=== PATIENT | female | born 1955 | race Caucasian/White ===

== ENCOUNTER 2022-02-01 18:16 | Emergency (ER) | payer MEDICARE, MEDICAID ==
[~2022-02-01 18:16] MED LIST: Iopamidol 300 61% 100 ML VIAL FS ONE
[2022-02-01 18:54] LABS: Bilirubin Neg (Negative); Blood, Urine Negative (Negative); Clarity Clear (Clear); Glucose, Urine (Dipstick) Normal (Negative); Ketone, Urine Negative (Negative); Leukocyte 100 (Negative); Nitrite Negative (Negative); Protein, Urine (Dipstick) Negative (Neg-Trace); Urobilinogen Normal mg/dL (Less than 2)
[2022-02-01 18:59] LABS: #Eosinphils 0.4 10x3/uL (0.0-0.5); #Monocytes 0.9 10x3/uL (0.0-1.1); #Neutrophils 4.5 10x3/uL (1.5-8.4); %Basophils 0.5 % (0.0-2.0); %Eosinophils 5.1 % (0.0-6.0); %Lymphocytes 25.4 % (18.0-47.0); %Monocytes 11.4 % (0.0-10.0); %Neutrophils 57.2 % (40.0-75.0); Hemoglobin 10.8 g/dL (12.0-15.5); Mean Corpuscular HGB CONC 33.8 g/dL (32.0-36.0); Mean Corpuscular Hemoglobin 30.1 pg (27.0-33.0); Mean Corpuscular Volume 89.1 fl (81.6-98.3); Mean Platelet Volume 11.2 fl (7.4-10.4); Platelet Count 180 10x3/uL (150-450); RBC Distribution Width 15.5 % (11.5-14.5); Red Blood Cell (RBC) Count 3.59 10x6/uL (3.90-5.03); White Blood Cell (WBC) Count 7.8 10x3/uL (3.5-10.5)
[2022-02-01 19:07] LABS: Bacteria/HPF None Seen HPF (None Seen); RBC/HPF 0-3 HPF (0-3); Squamous Epithelial 0-3 HPF (0-3); WBC/HPF 0-3 HPF (0-3)
[2022-02-01 19:10] LABS: ALT (SGPT) 17 U/L (8-55); AST (SGOT) 16 U/L (5-34); Alkaline Phosphatase 79 U/L (40-110); Anion Gap 16 mmol/L (10-20); BUN (Urea Nitrogen) 37 mg/dL (9.8-20.1); Bilirubin, Total 0.5 mg/dL (0.2-1.2); Calc. Creatinine Clearance 0 mL/min (70-130); Calcium 9.4 mg/dL (7.8-10.44); Carbon Dioxide 29 mmol/L (23-31); Chloride 95 mmol/L (98-107); Glucose 201 mg/dL (80-115); Lipase 362 U/L (8-78); Potassium 3.6 mmol/L (3.5-5.1); Sodium 136 mmol/L (136-145)
[2022-02-01 21:53] LABS: Lactic Acid 1.4 mmol/L (0.5-2.2)
== END 2022-02-02 00:17 | disposition short-term general hospital (02) ==
LOC: CSHERS 18:16
DX: K85.90 Acute pancreatitis without necrosis or infection, unspecified (principal); I11.0 Hypertensive heart disease with heart failure; I50.9 Heart failure, unspecified; I48.91 Unspecified atrial fibrillation; J44.9 Chronic obstructive pulmonary disease, unspecified; E78.5 Hyperlipidemia, unspecified; E03.9 Hypothyroidism, unspecified; K21.9 Gastro-esophageal reflux disease without esophagitis; Z79.4 Long term (current) use of insulin; Z87.891 Personal history of nicotine dependence; Z79.01 Long term (current) use of anticoagulants; Z79.899 Other long term (current) drug therapy
CPT/HCPCS: 36415; 71045; 74177; 80053; 81003; 81015; 82274; 83605; 83690; 83880; 84484; 85025; 87040; 87086; 93005; Q9967

== ENCOUNTER 2022-03-02 18:25 | Inpatient (IN) | payer MEDICARE, MEDICAID ==
[2022-03-02 19:32] LABS: #Basophils 0.1 10x3/uL (0.0-0.2); #Eosinphils 0.4 10x3/uL (0.0-0.5); #Monocytes 1.3 10x3/uL (0.0-1.1); %Basophils 0.4 % (0.0-2.0); %Eosinophils 3.1 % (0.0-6.0); %Lymphocytes 16.8 % (18.0-47.0); %Monocytes 10.7 % (0.0-10.0); %Neutrophils 68.7 % (40.0-75.0); Mean Corpuscular HGB CONC 31.9 g/dL (32.0-36.0); Mean Corpuscular Hemoglobin 28.9 pg (27.0-33.0); Mean Corpuscular Volume 90.6 fl (81.6-98.3); Mean Platelet Volume 11.3 fl (7.4-10.4); Platelet Count 203 10x3/uL (150-450); RBC Distribution Width 15.2 % (11.5-14.5); Red Blood Cell (RBC) Count 3.81 10x6/uL (3.90-5.03); White Blood Cell (WBC) Count 11.7 10x3/uL (3.5-10.5)
[2022-03-02 19:47] LABS: ALT (SGPT) 20 U/L (8-55); AST (SGOT) 18 U/L (5-34); Albumin 3.9 g/dL (3.4-4.8); Alkaline Phosphatase 81 U/L (40-110); Anion Gap 15 mmol/L (10-20); BUN (Urea Nitrogen) 59 mg/dL (9.8-20.1); Bilirubin, Total 0.5 mg/dL (0.2-1.2); Calc. Creatinine Clearance 0 mL/min (70-130); Calcium 9.8 mg/dL (7.8-10.44); Carbon Dioxide 31 mmol/L (23-31); Chloride 100 mmol/L (98-107); Globulin 4.1 g/dL (2.4-3.5); Glucose 92 mg/dL (80-115); Potassium 4.3 mmol/L (3.5-5.1); Sodium 142 mmol/L (136-145)
[2022-03-02] MEDS ORDERED: Calcium Carbonate 500 MG ChewTAB PO PRN (21:15)
[2022-03-02] MEDS ORDERED: Dextrose 50% Abboject 50 ML SYRINGE SLOW IVP PRN (21:15)
[2022-03-02] MEDS ORDERED: Ondansetron PF 4 MG/2 ML Vial IVP PRN (21:15)
[2022-03-02] MEDS ORDERED: Dextrose 5% in Water 1,000 ML IV PRN (21:15)
[2022-03-02] MEDS ORDERED: Guaifenesin DM 100-10/5 ML UDCUP PO PRN (21:15)
[2022-03-02] MEDS ORDERED: Albuterol Sulfate 2.5 mg/3 ml Neb NEB PRN (21:26)
[2022-03-02] MEDS ORDERED: Sodium Chloride 0.9% 500 ML IV SCH (21:45)
[2022-03-02] MEDS ORDERED: Acetaminophen 325 MG TAB ONE (22:24)
[2022-03-02 22:30] LABS: Digoxin 1.68 ng/mL (0.8-2.0)
[2022-03-02 23:40] VITALS: BMI 27.6
[2022-03-03 01:58] LABS: SARS-CoV-2 NAA Rapid Test Not Detected (NotDetected)
[2022-03-03] MEDS: Levothyroxine Sodium 100 MCG TAB PO SCH (05:01)
[2022-03-03 05:25] LABS: #Basophils 0.1 10x3/uL (0.0-0.2); #Eosinphils 0.4 10x3/uL (0.0-0.5); #Monocytes 0.9 10x3/uL (0.0-1.1); #Neutrophils 5.6 10x3/uL (1.5-8.4); %Basophils 0.7 % (0.0-2.0); %Eosinophils 4.2 % (0.0-6.0); %Monocytes 9.6 % (0.0-10.0); %Neutrophils 63.3 % (40.0-75.0); Hemoglobin 11.2 g/dL (12.0-15.5); Mean Corpuscular HGB CONC 33.3 g/dL (32.0-36.0); Mean Corpuscular Hemoglobin 29.4 pg (27.0-33.0); Mean Corpuscular Volume 88.2 fl (81.6-98.3); Mean Platelet Volume 11.8 fl (7.4-10.4); Platelet Count 193 10x3/uL (150-450); RBC Distribution Width 15.2 % (11.5-14.5); Red Blood Cell (RBC) Count 3.81 10x6/uL (3.90-5.03); White Blood Cell (WBC) Count 8.9 10x3/uL (3.5-10.5)
[2022-03-03 05:45] LABS: Anion Gap 17 mmol/L (10-20); Carbon Dioxide 28 mmol/L (23-31); Chloride 102 mmol/L (98-107); Potassium 3.5 mmol/L (3.5-5.1); Sodium 143 mmol/L (136-145)
[2022-03-03 05:46] LABS: ALT (SGPT) 18 U/L (8-55); AST (SGOT) 17 U/L (5-34); Albumin 3.4 g/dL (3.4-4.8); Alkaline Phosphatase 73 U/L (40-110); BUN (Urea Nitrogen) 51 mg/dL (9.8-20.1); Bilirubin, Total 0.5 mg/dL (0.2-1.2); Calc. Creatinine Clearance 58 mL/min (70-130); Calcium 9.1 mg/dL (7.8-10.44); Globulin 3.5 g/dL (2.4-3.5); Glucose 73 mg/dL (80-115); Protein, Total 6.9 g/dL (5.8-8.1)
[2022-03-03 05:49] LABS: Bilirubin Neg (Negative); Blood, Urine 150 (Negative); Clarity Cloudy (Clear); Glucose, Urine (Dipstick) Normal (Negative); Ketone, Urine Negative (Negative); Leukocyte 500 (Negative); Nitrite Negative (Negative); Protein, Urine (Dipstick) 30 mg/dl (Neg-Trace); Urobilinogen Normal mg/dL (Less than 2)
[2022-03-03 06:02] LABS: Bacteria/HPF 3+ HPF (None Seen); WBC/HPF Greater than 50 HPF (0-3)
[2022-03-03] MEDS: Mometasone/Formoterol 60 PUFF AER INH SCH ×2 (06:54→19:25)
[2022-03-03] MEDS ORDERED: Famotidine 20 MG TAB PO SCH (09:00)
[2022-03-03] MEDS ORDERED: cefTRIAXone\\ROCEPHIN 1 GM in Sodium Chloride 0.9% 100 ML IVPB SCH (09:00)
[2022-03-03 09:39] LABS: Troponin I 0.026 ng/mL (< 0.028)
[2022-03-03] MEDS: Aspirin 81 mg Enteric Coated Tablet PO SCH (11:45)
[2022-03-03] MEDS: Saccharomyces boulardii 250 MG CAP PO SCH ×2 (11:45→21:10)
[2022-03-03] MEDS: Cholecalciferol 1,000 UNITS (25 MCG) TAB PO SCH (11:45)
[2022-03-03] MEDS: Apixaban 5 MG TAB PO SCH ×2 (11:45→21:10)
[2022-03-03] MEDS: Allopurinol 100 MG TAB PO SCH (11:45)
[2022-03-03] MEDS: Multivit, Therapeutic 1 TAB PO SCH (11:45)
[2022-03-03] MEDS: Digoxin 0.125 MG TAB PO SCH (11:45)
[2022-03-03] MEDS: Atorvastatin Calcium 20 MG TAB PO SCH (11:45)
[2022-03-03] MEDS: Acetaminophen 325 MG TAB PO PRN (11:46)
[2022-03-03] MEDS: Sodium Chloride 0.9% 1,000 ML IV SCH (11:47)
[2022-03-03] MEDS: cefTRIAXone\\ROCEPHIN 1 GM in Sodium Chloride 0.9% 100 ML IVPB SCH (11:47)
[2022-03-03] MEDS: Benztropine 1 MG TAB PO SCH (21:10)
[2022-03-04] MEDS: Sodium Chloride 0.9% 1,000 ML IV SCH (05:57)
[2022-03-04] MEDS: Levothyroxine Sodium 100 MCG TAB PO SCH (05:57)
[2022-03-04] MEDS: Mometasone/Formoterol 60 PUFF AER INH SCH ×2 (06:59→19:39)
[2022-03-04] MEDS: Aspirin 81 mg Enteric Coated Tablet PO SCH (09:03)
[2022-03-04] MEDS: Multivit, Therapeutic 1 TAB PO SCH (09:03)
[2022-03-04] MEDS: Apixaban 5 MG TAB PO SCH ×2 (09:03→21:20)
[2022-03-04] MEDS: Allopurinol 100 MG TAB PO SCH (09:03)
[2022-03-04] MEDS: Cholecalciferol 1,000 UNITS (25 MCG) TAB PO SCH (09:04)
[2022-03-04] MEDS: Atorvastatin Calcium 20 MG TAB PO SCH (09:04)
[2022-03-04] MEDS: Saccharomyces boulardii 250 MG CAP PO SCH ×2 (09:04→21:20)
[2022-03-04] MEDS: Famotidine 20 MG TAB PO SCH ×2 (09:04→21:20)
[2022-03-04] MEDS: Digoxin 0.125 MG TAB PO SCH (09:57)
[2022-03-04] MEDS: cefTRIAXone\\ROCEPHIN 1 GM in Sodium Chloride 0.9% 100 ML IVPB SCH (10:09)
[2022-03-04] MEDS: Acetaminophen 325 MG TAB PO PRN (10:11)
[2022-03-04 13:15] LABS: #Basophils 0.1 10x3/uL (0.0-0.2); #Eosinphils 0.2 10x3/uL (0.0-0.5); #Monocytes 0.7 10x3/uL (0.0-1.1); #Neutrophils 6.8 10x3/uL (1.5-8.4); %Basophils 0.6 % (0.0-2.0); %Eosinophils 2.5 % (0.0-6.0); %Lymphocytes 13.6 % (18.0-47.0); %Monocytes 7.7 % (0.0-10.0); %Neutrophils 75.3 % (40.0-75.0); Hemoglobin 10.9 g/dL (12.0-15.5); Mean Corpuscular HGB CONC 34.1 g/dL (32.0-36.0); Mean Corpuscular Hemoglobin 29.7 pg (27.0-33.0); Mean Corpuscular Volume 87.2 fl (81.6-98.3); Mean Platelet Volume 11.1 fl (7.4-10.4); Platelet Count 170 10x3/uL (150-450); RBC Distribution Width 15.2 % (11.5-14.5); Red Blood Cell (RBC) Count 3.67 10x6/uL (3.90-5.03)
[2022-03-04 13:32] LABS: Anion Gap 16 mmol/L (10-20); BUN (Urea Nitrogen) 32 mg/dL (9.8-20.1); Calc. Creatinine Clearance 81 mL/min (70-130); Calcium 9.4 mg/dL (7.8-10.44); Carbon Dioxide 25 mmol/L (23-31); Chloride 99 mmol/L (98-107); Glucose 213 mg/dL (80-115); Potassium 3.9 mmol/L (3.5-5.1); Sodium 136 mmol/L (136-145)
[2022-03-04] MEDS: Benztropine 1 MG TAB PO SCH (21:20)
[2022-03-04] MEDS: HumaLOG 300 UNITS/3 ML VIAL SC PRN (21:22)
[2022-03-05] MEDS: Sodium Chloride 0.9% 1,000 ML IV SCH (03:10)
[2022-03-05 05:00] LABS: #Eosinphils 0.3 10x3/uL (0.0-0.5); #Monocytes 0.4 10x3/uL (0.0-1.1); #Neutrophils 4.8 10x3/uL (1.5-8.4); %Basophils 0.4 % (0.0-2.0); %Eosinophils 3.7 % (0.0-6.0); %Lymphocytes 17.6 % (18.0-47.0); %Monocytes 6.3 % (0.0-10.0); %Neutrophils 71.7 % (40.0-75.0); Hemoglobin 10.6 g/dL (12.0-15.5); Mean Corpuscular HGB CONC 33.2 g/dL (32.0-36.0); Mean Corpuscular Hemoglobin 29.4 pg (27.0-33.0); Mean Corpuscular Volume 88.4 fl (81.6-98.3); Mean Platelet Volume 12.2 fl (7.4-10.4); Platelet Count 185 10x3/uL (150-450); RBC Distribution Width 15.5 % (11.5-14.5); Red Blood Cell (RBC) Count 3.61 10x6/uL (3.90-5.03); White Blood Cell (WBC) Count 6.7 10x3/uL (3.5-10.5)
[2022-03-05 05:17] LABS: Anion Gap 17 mmol/L (10-20); BUN (Urea Nitrogen) 26 mg/dL (9.8-20.1); Calc. Creatinine Clearance 71 mL/min (70-130); Calcium 9.3 mg/dL (7.8-10.44); Carbon Dioxide 25 mmol/L (23-31); Chloride 101 mmol/L (98-107); Glucose 304 mg/dL (80-115); Sodium 139 mmol/L (136-145)
[2022-03-05] MEDS: Levothyroxine Sodium 100 MCG TAB PO SCH (05:44)
[2022-03-05] MEDS: HumaLOG 300 UNITS/3 ML VIAL SC PRN ×3 (06:11→16:45)
[2022-03-05] MEDS: Mometasone/Formoterol 60 PUFF AER INH SCH ×2 (06:27→19:30)
[2022-03-05] MEDS: Famotidine 20 MG TAB PO SCH ×3 (09:16→21:11)
[2022-03-05] MEDS: Atorvastatin Calcium 20 MG TAB PO SCH (09:16)
[2022-03-05] MEDS: Cholecalciferol 1,000 UNITS (25 MCG) TAB PO SCH (09:16)
[2022-03-05] MEDS: Allopurinol 100 MG TAB PO SCH (09:16)
[2022-03-05] MEDS: cefTRIAXone\\ROCEPHIN 1 GM in Sodium Chloride 0.9% 100 ML IVPB SCH (09:16)
[2022-03-05] MEDS: Saccharomyces boulardii 250 MG CAP PO SCH ×2 (09:17→21:11)
[2022-03-05] MEDS: Multivit, Therapeutic 1 TAB PO SCH (09:17)
[2022-03-05] MEDS: Apixaban 5 MG TAB PO SCH ×2 (09:17→21:11)
[2022-03-05] MEDS: Aspirin 81 mg Enteric Coated Tablet PO SCH (09:17)
[2022-03-05] MEDS: Benztropine 1 MG TAB PO SCH (21:11)
[2022-03-05] MEDS: Acetaminophen 325 MG TAB PO PRN (21:28)
[2022-03-06] MEDS: HumaLOG 300 UNITS/3 ML VIAL SC PRN ×3 (00:26→12:20)
[2022-03-06] MEDS: Levothyroxine Sodium 100 MCG TAB PO SCH (05:24)
[2022-03-06 05:26] LABS: #Eosinphils 0.3 10x3/uL (0.0-0.5); #Monocytes 0.7 10x3/uL (0.0-1.1); #Neutrophils 4.3 10x3/uL (1.5-8.4); %Basophils 0.6 % (0.0-2.0); %Eosinophils 4.8 % (0.0-6.0); %Lymphocytes 22.7 % (18.0-47.0); %Neutrophils 61.5 % (40.0-75.0); Hemoglobin 10.4 g/dL (12.0-15.5); Mean Corpuscular HGB CONC 33.2 g/dL (32.0-36.0); Mean Corpuscular Hemoglobin 29.3 pg (27.0-33.0); Mean Corpuscular Volume 88.2 fl (81.6-98.3); Mean Platelet Volume 11.2 fl (7.4-10.4); Platelet Count 167 10x3/uL (150-450); RBC Distribution Width 15.3 % (11.5-14.5); Red Blood Cell (RBC) Count 3.55 10x6/uL (3.90-5.03); White Blood Cell (WBC) Count 6.9 10x3/uL (3.5-10.5)
[2022-03-06 05:28] LABS: Anion Gap 15 mmol/L (10-20); BUN (Urea Nitrogen) 17 mg/dL (9.8-20.1); Calc. Creatinine Clearance 88 mL/min (70-130); Calcium 9.7 mg/dL (7.8-10.44); Carbon Dioxide 26 mmol/L (23-31); Chloride 104 mmol/L (98-107); Glucose 158 mg/dL (80-115); Sodium 141 mmol/L (136-145)
[2022-03-06] MEDS: Mometasone/Formoterol 60 PUFF AER INH SCH (07:14)
[2022-03-06] MEDS: cefTRIAXone\\ROCEPHIN 1 GM in Sodium Chloride 0.9% 100 ML IVPB SCH (09:07)
[2022-03-06] MEDS: Saccharomyces boulardii 250 MG CAP PO SCH (09:08)
[2022-03-06] MEDS: Acetaminophen 325 MG TAB PO PRN (09:08)
[2022-03-06] MEDS: Atorvastatin Calcium 20 MG TAB PO SCH (09:08)
[2022-03-06] MEDS: Cholecalciferol 1,000 UNITS (25 MCG) TAB PO SCH (09:08)
[2022-03-06] MEDS: Multivit, Therapeutic 1 TAB PO SCH (09:08)
[2022-03-06] MEDS: Famotidine 20 MG TAB PO SCH (09:08)
[2022-03-06] MEDS: Aspirin 81 mg Enteric Coated Tablet PO SCH (09:09)
[2022-03-06] MEDS: Apixaban 5 MG TAB PO SCH (09:09)
[2022-03-06] MEDS: Allopurinol 100 MG TAB PO SCH (09:09)
[2022-03-06 17:43] VITALS: BP 125/73; TEMP 98.5
[2022-03-06] MEDS ORDERED: Lantus 1000 UNITS/10 ML VIAL SC SCH (21:00)
== END 2022-03-06 18:06 | DRG 683 ==
LOC: CSHERS 18:25 → CSHTELE 23:36
PROVIDERS: ADMIT Student in an Organized Health Care Education/Training Program; ATTEND Internal Medicine
DX: N17.9 Acute kidney failure, unspecified (principal); I50.42 Chronic combined systolic (congestive) and diastolic (congestive) heart failure; I13.0 Hypertensive heart and chronic kidney disease with heart failure and stage 1 through stage 4 chronic kidney disease, or unspecified chronic kidney disease; N39.0 Urinary tract infection, site not specified; I42.9 Cardiomyopathy, unspecified; I48.19 Other persistent atrial fibrillation; E78.5 Hyperlipidemia, unspecified; E86.0 Dehydration; E03.9 Hypothyroidism, unspecified; K21.9 Gastro-esophageal reflux disease without esophagitis; J44.9 Chronic obstructive pulmonary disease, unspecified; F31.9 Bipolar disorder, unspecified; R41.841 Cognitive communication deficit; F20.9 Schizophrenia, unspecified; T14.8XXA Other injury of unspecified body region, initial encounter; M10.9 Gout, unspecified; I34.0 Nonrheumatic mitral (valve) insufficiency; I25.10 Atherosclerotic heart disease of native coronary artery without angina pectoris; E11.22 Type 2 diabetes mellitus with diabetic chronic kidney disease; D72.829 Elevated white blood cell count, unspecified; R00.1 Bradycardia, unspecified; I87.2 Venous insufficiency (chronic) (peripheral); R62.7 Adult failure to thrive; E11.51 Type 2 diabetes mellitus with diabetic peripheral angiopathy without gangrene; I35.0 Nonrheumatic aortic (valve) stenosis; N18.30 Chronic kidney disease, stage 3 unspecified; R19.7 Diarrhea, unspecified; K59.00 Constipation, unspecified; Z20.822 Contact with and (suspected) exposure to COVID-19; Z87.891 Personal history of nicotine dependence; Z79.84 Long term (current) use of oral hypoglycemic drugs; Z79.01 Long term (current) use of anticoagulants; Z98.890 Other specified postprocedural states; Z87.440 Personal history of urinary (tract) infections; Z68.27 Body mass index [BMI] 27.0-27.9, adult; Z99.3 Dependence on wheelchair; Z79.899 Other long term (current) drug therapy; Z79.890 Hormone replacement therapy; Z79.4 Long term (current) use of insulin; Z79.82 Long term (current) use of aspirin
CPT/HCPCS: 36415; 36416; 71045; 74176; 80048; 80053; 80162; 81001; 82550; 83605; 83690; 83880; 84145; 84443; 84484; 85025; 87040; 87070; 87077; 87086; 87186; 87205; 93005; 93010; J0696; J1815; J3490; J7050

== ENCOUNTER 2022-03-20 07:49 | Inpatient (IN) | payer MEDICARE, MEDICAID ==
[2022-03-20] MEDS ORDERED: Furosemide 40 MG/4 ML VIAL ONE (08:16)
[2022-03-20] MEDS ORDERED: Diltiazem 125 MG/25 ML ONE (08:16)
[2022-03-20 08:29] LABS: #Eosinphils 0.2 10x3/uL (0.0-0.5); #Monocytes 0.6 10x3/uL (0.0-1.1); #Neutrophils 5.8 10x3/uL (1.5-8.4); %Basophils 0.5 % (0.0-2.0); %Lymphocytes 20.6 % (18.0-47.0); %Monocytes 7.2 % (0.0-10.0); %Neutrophils 69.5 % (40.0-75.0); Hemoglobin 10.4 g/dL (12.0-15.5); Mean Corpuscular HGB CONC 32.4 g/dL (32.0-36.0); Mean Corpuscular Hemoglobin 29.3 pg (27.0-33.0); Mean Corpuscular Volume 90.4 fl (81.6-98.3); Platelet Count 209 10x3/uL (150-450); RBC Distribution Width 16.4 % (11.5-14.5); Red Blood Cell (RBC) Count 3.55 10x6/uL (3.90-5.03); White Blood Cell (WBC) Count 8.3 10x3/uL (3.5-10.5)
[2022-03-20 08:42] LABS: ALT (SGPT) 14 U/L (8-55); AST (SGOT) 13 U/L (5-34); Albumin 3.9 g/dL (3.4-4.8); Alkaline Phosphatase 77 U/L (40-110); Anion Gap 17 mmol/L (10-20); BUN (Urea Nitrogen) 25 mg/dL (9.8-20.1); Calc. Creatinine Clearance 0 mL/min (70-130); Calcium 9.3 mg/dL (7.8-10.44); Carbon Dioxide 31 mmol/L (23-31); Chloride 96 mmol/L (98-107); Globulin 3.7 g/dL (2.4-3.5); Glucose 176 mg/dL (80-115); Potassium 3.2 mmol/L (3.5-5.1); Protein, Total 7.6 g/dL (5.8-8.1); Sodium 141 mmol/L (136-145)
[2022-03-20] MEDS ORDERED: Potassium Chloride 20 MEQ TAB ONE (09:39)
[2022-03-20] MEDS ORDERED: Morphine 4 MG/ML VIAL ONE (11:34)
[2022-03-20] MEDS ORDERED: Ondansetron PF 4 MG/2 ML Vial ONE (11:34)
[2022-03-20 12:10] LABS: Troponin I 0.018 ng/mL (< 0.028)
[2022-03-20 15:03] LABS: Troponin I 0.016 ng/mL (< 0.028)
[2022-03-20] MEDS ORDERED: Magnesium 2 GM/50 ML(in water) 2 GM in Premix Bag 1 BAG IVPB SCH (16:00)
[2022-03-20] MEDS ORDERED: Diltiazem 125 MG in Sodium Chloride 0.9% 100 ML IVPB SCH (16:15)
[2022-03-20] MEDS ORDERED: Famotidine/PF 20 mg/2ml Vial SLOW IVP SCH (21:00)
[2022-03-20] MEDS: Apixaban 5 MG TAB PO SCH (22:25)
[2022-03-21 05:31] LABS: #Eosinphils 0.2 10x3/uL (0.0-0.5); #Monocytes 0.5 10x3/uL (0.0-1.1); #Neutrophils 5.8 10x3/uL (1.5-8.4); %Basophils 0.3 % (0.0-2.0); %Eosinophils 3.1 % (0.0-6.0); %Lymphocytes 12.8 % (18.0-47.0); %Monocytes 6.6 % (0.0-10.0); %Neutrophils 76.9 % (40.0-75.0); Hemoglobin 9.7 g/dL (12.0-15.5); Mean Corpuscular HGB CONC 32.3 g/dL (32.0-36.0); Mean Corpuscular Hemoglobin 29.4 pg (27.0-33.0); Mean Corpuscular Volume 90.9 fl (81.6-98.3); Mean Platelet Volume 11.2 fl (7.4-10.4); Platelet Count 160 10x3/uL (150-450); RBC Distribution Width 16.4 % (11.5-14.5); White Blood Cell (WBC) Count 7.5 10x3/uL (3.5-10.5)
[2022-03-21 06:06] LABS: Anion Gap 16 mmol/L (10-20); BUN (Urea Nitrogen) 23 mg/dL (9.8-20.1); Calc. Creatinine Clearance 90 mL/min (70-130); Calcium 8.7 mg/dL (7.8-10.44); Carbon Dioxide 31 mmol/L (23-31); Chloride 96 mmol/L (98-107); Estimated GFR 59; Glucose 204 mg/dL (80-115); Potassium 3.3 mmol/L (3.5-5.1); Sodium 140 mmol/L (136-145)
[2022-03-21] MEDS: Acetaminophen 325 MG TAB PO PRN ×2 (06:22→10:21)
[2022-03-21] MEDS ORDERED: Potassium Chloride 20 MEQ TAB PO SCH (08:00)
[2022-03-21] MEDS ORDERED: Dextrose 5% in Water 1,000 ML IV PRN (09:41)
[2022-03-21] MEDS ORDERED: Dextrose 50% Abboject 50 ML SYRINGE SLOW IVP PRN (09:41)
[2022-03-21] MEDS: Famotidine 20 MG TAB PO SCH ×2 (10:22→21:44)
[2022-03-21] MEDS: Apixaban 5 MG TAB PO SCH ×2 (10:22→21:44)
[2022-03-21 10:35] LABS: Magnesium 2.2 mg/dL (1.6-2.6)
[2022-03-21] MEDS ORDERED: Metoprolol Tartrate 25 MG TAB PO SCH ×2 (11:00→23:45)
[2022-03-21] MEDS ORDERED: HYDROcodone/Acetaminophen 5/325 mg Tablet PO PRN (12:49)
[2022-03-21] MEDS: Furosemide 40 MG TAB PO SCH (13:01)
[2022-03-21] MEDS: CEFAZOLIN 2 GM in Sodium Chloride 0.9% 100 ML IVPB SCH ×2 (13:01→21:47)
[2022-03-21] MEDS ORDERED: Bisacodyl 10 MG SUPP PR PRN (17:08)
[2022-03-21] MEDS: HumaLOG 300 UNITS/3 ML VIAL SC PRN ×2 (17:40→22:00)
[2022-03-21] MEDS ORDERED: Polyethylene Glycol 3350 17 GM Packet PO SCH (18:00)
[2022-03-21] MEDS ORDERED: Bisacodyl 5 MG TAB PO SCH (18:00)
[2022-03-21 18:46] LABS: Bilirubin Neg (Negative); Blood, Urine 10 (Negative); Clarity Clear (Clear); Glucose, Urine (Dipstick) Normal (Negative); Ketone, Urine Negative (Negative); Leukocyte Negative (Negative); Nitrite Negative (Negative); Protein, Urine (Dipstick) Negative (Neg-Trace); Specific Gravity, Urine 1.015 (1.002-1.036)
[2022-03-21 18:57] LABS: Urine Culture Reflex No No
[2022-03-21 18:59] LABS: Bacteria/HPF 1+ HPF (None Seen); RBC/HPF 0-3 HPF (0-3); Squamous Epithelial 0-3 HPF (0-3); WBC/HPF 0-3 HPF (0-3)
[2022-03-21] MEDS: Mometasone/Formoterol 60 PUFF AER INH SCH (20:25)
[2022-03-21] MEDS: Lantus 1000 UNITS/10 ML VIAL SC SCH (21:42)
[2022-03-21] MEDS: traMADol HCl 50 MG TAB PO PRN (21:44)
[2022-03-21] MEDS: Senokot S 8.6-50 MG TAB PO SCH (21:45)
[2022-03-21] MEDS: Benztropine 1 MG TAB PO SCH (21:45)
[2022-03-21] MEDS: Metoprolol Tartrate 25 MG TAB PO SCH (21:46)
[2022-03-21] MEDS: Melatonin 3 MG TAB PO SCH (21:46)
[2022-03-21] MEDS: Aripiprazole 10 MG TAB PO SCH (22:01)
[2022-03-22] MEDS: CEFAZOLIN 2 GM in Sodium Chloride 0.9% 100 ML IVPB SCH ×2 (03:06→11:52)
[2022-03-22 05:07] LABS: #Eosinphils 0.1 10x3/uL (0.0-0.5); #Monocytes 0.6 10x3/uL (0.0-1.1); #Neutrophils 7.5 10x3/uL (1.5-8.4); %Basophils 0.2 % (0.0-2.0); %Eosinophils 0.6 % (0.0-6.0); %Monocytes 6.3 % (0.0-10.0); %Neutrophils 83.5 % (40.0-75.0); Mean Corpuscular HGB CONC 31.5 g/dL (32.0-36.0); Mean Corpuscular Hemoglobin 29.1 pg (27.0-33.0); Mean Corpuscular Volume 92.2 fl (81.6-98.3); Mean Platelet Volume 11.5 fl (7.4-10.4); Platelet Count 170 10x3/uL (150-450); Red Blood Cell (RBC) Count 3.44 10x6/uL (3.90-5.03)
[2022-03-22 05:33] LABS: ALT (SGPT) 12 U/L (8-55); AST (SGOT) 13 U/L (5-34); Albumin 3.4 g/dL (3.4-4.8); Alkaline Phosphatase 76 U/L (40-110); Anion Gap 16 mmol/L (10-20); BUN (Urea Nitrogen) 27 mg/dL (9.8-20.1); Bilirubin, Direct 0.3 mg/dL (0.1-0.3); Bilirubin, Total 0.5 mg/dL (0.2-1.2); CRP (Inflammatory) 14.29 mg/dL (= or < 0.5); Calc. Creatinine Clearance 76 mL/min (70-130); Calcium 8.9 mg/dL (7.8-10.44); Carbon Dioxide 29 mmol/L (23-31); Cardiac Risk 4.2 (Less than 4.5); Chloride 97 mmol/L (98-107); Cholesterol 123 mg/dl (< 200 Desired); Estimated GFR 48; Glucose 280 mg/dL (80-115); HDL Cholesterol 29 mg/dL (>60 Neg Risk); LDL Cholesterol, Calculated 75 mg/dL; Potassium 3.3 mmol/L (3.5-5.1); Protein, Total 6.8 g/dL (5.8-8.1); Sodium 139 mmol/L (136-145); Triglycerides 95 mg/dL (Less than 150)
[2022-03-22] MEDS: HumaLOG 300 UNITS/3 ML VIAL SC PRN ×3 (06:27→18:00)
[2022-03-22] MEDS: Levothyroxine Sodium 75 MCG TAB PO SCH (06:27)
[2022-03-22] MEDS: Mometasone/Formoterol 60 PUFF AER INH SCH ×2 (06:49→21:45)
[2022-03-22] MEDS ORDERED: Potassium Bicarbonate/Cit Ac 20 MEQ TAB PO SCH (08:00)
[2022-03-22] MEDS ORDERED: Polyethylene Glycol 3350 17 GM Packet PO SCH (09:00)
[2022-03-22] MEDS: Apixaban 5 MG TAB PO SCH ×2 (09:08→21:10)
[2022-03-22] MEDS: Famotidine 20 MG TAB PO SCH ×2 (09:08→21:10)
[2022-03-22] MEDS: Metoprolol Tartrate 25 MG TAB PO SCH ×2 (09:08→21:11)
[2022-03-22] MEDS: Furosemide 40 MG TAB PO SCH (09:08)
[2022-03-22] MEDS: Atorvastatin Calcium 20 MG TAB PO SCH (09:09)
[2022-03-22] MEDS: Aspirin 81 mg Enteric Coated Tablet PO SCH (09:09)
[2022-03-22] MEDS: Senokot S 8.6-50 MG TAB PO SCH ×2 (09:13→22:40)
[2022-03-22] MEDS ORDERED: Metoprolol Tartrate 5 MG/5 ML VIAL IVP PRN (09:53)
[2022-03-22] MEDS ORDERED: Milk Of Magnesia 30 ML UDCUP PO SCH (10:30)
[2022-03-22] MEDS ORDERED: Metoprolol Tartrate 25 MG TAB PO SCH (11:00)
[2022-03-22] MEDS ORDERED: Fleet Enema 133 ML BOT PR PRN (12:46)
[2022-03-22] MEDS: Furosemide 40 MG/4 ML VIAL SLOW IVP SCH (14:23)
[2022-03-22] MEDS ORDERED: Furosemide 40 MG/4 ML VIAL SLOW IVP SCH (20:00)
[2022-03-22] MEDS ORDERED: Azithromycin 500 MG in Sodium Chloride 0.9% 250 ML 250 ML IVPB SCH (20:00)
[2022-03-22 20:07] LABS: Actual Bicarbonate (HCO3v) 30 mEq/L (22-28); Base Excess 5.3 mEq/L (-2.0 to +3.0); Calcium, Ionized (venous) 1.08 mmol/L (1.16-1.32); Chloride (VBG) 96 mmol/L (98-106); Critical Notified By: CP.PH; Hemoglobin (Hb) 10.1 g/dL (11.7-16.1); Potassium (VBG) 3.25 mmol/L (3.70-5.30); Puncture Site Other Site; Sodium 133.6 mmol/L (133-146); pH (venous) 7.45 (7.32-7.43)
[2022-03-22] MEDS ORDERED: cefTRIAXone\\ROCEPHIN 2 GM in Sodium Chloride 0.9% 100 ML IVPB SCH (21:00)
[2022-03-22] MEDS: Melatonin 3 MG TAB PO SCH (21:11)
[2022-03-22] MEDS: Polyethylene Glycol 3350 17 GM Packet PO SCH (21:11)
[2022-03-22] MEDS: Benztropine 1 MG TAB PO SCH (21:11)
[2022-03-22 21:13] LABS: Lactic Acid 1.1 mmol/L (0.5-2.2)
[2022-03-22] MEDS: Aripiprazole 10 MG TAB PO SCH (21:20)
[2022-03-22] MEDS: Lantus 1000 UNITS/10 ML VIAL SC SCH (21:32)
[2022-03-22] MEDS ORDERED: Potassium Chloride 20 MEQ TAB PO SCH (23:45)
[2022-03-23 04:57] LABS: Anion Gap 15 mmol/L (10-20); BUN (Urea Nitrogen) 25 mg/dL (9.8-20.1); Calc. Creatinine Clearance 84 mL/min (70-130); Calcium 8.7 mg/dL (7.8-10.44); Carbon Dioxide 31 mmol/L (23-31); Chloride 96 mmol/L (98-107); Estimated GFR 55; Glucose 220 mg/dL (80-115); Magnesium 1.9 mg/dL (1.6-2.6); Potassium 3.8 mmol/L (3.5-5.1); Sodium 138 mmol/L (136-145)
[2022-03-23] MEDS: Levothyroxine Sodium 75 MCG TAB PO SCH (05:41)
[2022-03-23] MEDS: Furosemide 40 MG/4 ML VIAL SLOW IVP SCH ×2 (05:41→18:03)
[2022-03-23] MEDS: HumaLOG 300 UNITS/3 ML VIAL SC PRN ×2 (05:45→16:00)
[2022-03-23 06:41] LABS: #Eosinphils 0.1 10x3/uL (0.0-0.5); #Monocytes 0.7 10x3/uL (0.0-1.1); #Neutrophils 8.8 10x3/uL (1.5-8.4); %Basophils 0.4 % (0.0-2.0); %Eosinophils 0.6 % (0.0-6.0); %Monocytes 6.8 % (0.0-10.0); %Neutrophils 81.6 % (40.0-75.0); Hemoglobin 9.7 g/dL (12.0-15.5); Mean Corpuscular HGB CONC 32.1 g/dL (32.0-36.0); Mean Corpuscular Volume 90.4 fl (81.6-98.3); Mean Platelet Volume 11.8 fl (7.4-10.4); Platelet Count 166 10x3/uL (150-450); Red Blood Cell (RBC) Count 3.34 10x6/uL (3.90-5.03); White Blood Cell (WBC) Count 10.8 10x3/uL (3.5-10.5)
[2022-03-23] MEDS: Mometasone/Formoterol 60 PUFF AER INH SCH ×2 (07:16→18:50)
[2022-03-23] MEDS: Famotidine 20 MG TAB PO SCH ×2 (10:33→21:45)
[2022-03-23] MEDS: Atorvastatin Calcium 20 MG TAB PO SCH (10:33)
[2022-03-23] MEDS: Polyethylene Glycol 3350 17 GM Packet PO SCH (10:33)
[2022-03-23] MEDS: Apixaban 5 MG TAB PO SCH ×2 (10:34→21:45)
[2022-03-23] MEDS: Metoprolol Tartrate 25 MG TAB PO SCH ×2 (10:34→21:45)
[2022-03-23] MEDS: Aspirin 81 mg Enteric Coated Tablet PO SCH (10:39)
[2022-03-23] MEDS: Senokot S 8.6-50 MG TAB PO SCH ×2 (10:39→21:45)
[2022-03-23] MEDS: traMADol HCl 50 MG TAB PO PRN (15:09)
[2022-03-23] MEDS ORDERED: Magnesium Oxide 400 MG TAB PO SCH (15:15)
[2022-03-23 16:24] LABS: Phosphorus 2.8 mg/dL (2.3-4.7)
[2022-03-23] MEDS: Linezolid 600 MG in Premix Bag 1 BAG IVPB SCH (20:42)
[2022-03-23] MEDS ORDERED: Lantus 1000 UNITS/10 ML VIAL SC SCH (21:00)
[2022-03-23] MEDS: Aripiprazole 10 MG TAB PO SCH (21:44)
[2022-03-23] MEDS: Benztropine 1 MG TAB PO SCH (21:44)
[2022-03-23] MEDS: Melatonin 3 MG TAB PO SCH (21:45)
[2022-03-23] MEDS: Estrogens, Conjugated 30 GM TUBE VAG SCH (21:55)
[2022-03-23 23:30] LABS: Strep pneumo Urine Ag NEGATIVE (NEGATIVE)
[2022-03-24] MEDS: Levothyroxine Sodium 50 MCG TAB PO SCH (05:47)
[2022-03-24 06:09] LABS: #Eosinphils 0.2 10x3/uL (0.0-0.5); #Monocytes 0.6 10x3/uL (0.0-1.1); #Neutrophils 7.1 10x3/uL (1.5-8.4); %Basophils 0.4 % (0.0-2.0); %Lymphocytes 13.4 % (18.0-47.0); %Monocytes 6.7 % (0.0-10.0); Hemoglobin 8.9 g/dL (12.0-15.5); Mean Corpuscular HGB CONC 31.9 g/dL (32.0-36.0); Mean Corpuscular Hemoglobin 29.4 pg (27.0-33.0); Mean Corpuscular Volume 92.1 fl (81.6-98.3); Mean Platelet Volume 11.4 fl (7.4-10.4); Platelet Count 154 10x3/uL (150-450); RBC Distribution Width 16.2 % (11.5-14.5); Red Blood Cell (RBC) Count 3.03 10x6/uL (3.90-5.03); White Blood Cell (WBC) Count 9.2 10x3/uL (3.5-10.5)
[2022-03-24 06:19] LABS: Anion Gap 13 mmol/L (10-20); BUN (Urea Nitrogen) 29 mg/dL (9.8-20.1); Calc. Creatinine Clearance 104 mL/min (70-130); Calcium 8.8 mg/dL (7.8-10.44); Carbon Dioxide 33 mmol/L (23-31); Chloride 96 mmol/L (98-107); Estimated GFR 69; Glucose 139 mg/dL (80-115); Magnesium 2.1 mg/dL (1.6-2.6); Potassium 3.1 mmol/L (3.5-5.1); Sodium 139 mmol/L (136-145)
[2022-03-24] MEDS: HumaLOG 300 UNITS/3 ML VIAL SC PRN (06:52)
[2022-03-24] MEDS: Furosemide 40 MG TAB PO SCH ×2 (09:08→16:24)
[2022-03-24] MEDS: Famotidine 20 MG TAB PO SCH ×2 (09:08→21:09)
[2022-03-24] MEDS: Atorvastatin Calcium 20 MG TAB PO SCH (09:08)
[2022-03-24] MEDS: Apixaban 5 MG TAB PO SCH ×2 (09:09→21:09)
[2022-03-24] MEDS: Polyethylene Glycol 3350 17 GM Packet PO SCH (09:09)
[2022-03-24] MEDS: Aspirin 81 mg Enteric Coated Tablet PO SCH (09:09)
[2022-03-24] MEDS: Senokot S 8.6-50 MG TAB PO SCH ×2 (09:09→21:19)
[2022-03-24] MEDS: Metoprolol Tartrate 25 MG TAB PO SCH ×2 (09:09→21:09)
[2022-03-24] MEDS: Magnesium Oxide 400 MG TAB PO SCH (09:09)
[2022-03-24] MEDS: Linezolid 600 MG in Premix Bag 1 BAG IVPB SCH ×2 (09:26→21:08)
[2022-03-24] MEDS: Acetaminophen 325 MG TAB PO PRN (09:27)
[2022-03-24] MEDS ORDERED: Potassium Chloride 20 MEQ in Premix Bag 1 BAG IVPB SCH (10:45)
[2022-03-24] MEDS: Mometasone/Formoterol 60 PUFF AER INH SCH ×2 (10:50→19:02)
[2022-03-24] MEDS ORDERED: Electrolyte Replacement Protocol 1 EACH FS SCH (14:45)
[2022-03-24] MEDS ORDERED: Potassium Chloride 20 MEQ TAB PO SCH (16:00)
[2022-03-24] MEDS: Aripiprazole 10 MG TAB PO SCH (21:08)
[2022-03-24] MEDS: Estrogens, Conjugated 30 GM TUBE VAG SCH (21:09)
[2022-03-24] MEDS: Melatonin 3 MG TAB PO SCH (21:09)
[2022-03-24] MEDS: Benztropine 1 MG TAB PO SCH (21:18)
[2022-03-24] MEDS: Lantus 1000 UNITS/10 ML VIAL SC SCH (21:19)
[2022-03-25 05:37] LABS: #Eosinphils 0.3 10x3/uL (0.0-0.5); #Monocytes 0.5 10x3/uL (0.0-1.1); #Neutrophils 4.5 10x3/uL (1.5-8.4); %Basophils 0.3 % (0.0-2.0); %Monocytes 7.3 % (0.0-10.0); %Neutrophils 69.9 % (40.0-75.0); Hemoglobin 8.6 g/dL (12.0-15.5); Mean Corpuscular HGB CONC 32.8 g/dL (32.0-36.0); Mean Corpuscular Volume 91.3 fl (81.6-98.3); Mean Platelet Volume 11.9 fl (7.4-10.4); Platelet Count 145 10x3/uL (150-450); RBC Distribution Width 16.3 % (11.5-14.5); Red Blood Cell (RBC) Count 2.87 10x6/uL (3.90-5.03); White Blood Cell (WBC) Count 6.5 10x3/uL (3.5-10.5)
[2022-03-25 05:47] LABS: Anion Gap 15 mmol/L (10-20); BUN (Urea Nitrogen) 28 mg/dL (9.8-20.1); Calc. Creatinine Clearance 113 mL/min (70-130); Calcium 8.3 mg/dL (7.8-10.44); Carbon Dioxide 31 mmol/L (23-31); Chloride 98 mmol/L (98-107); Estimated GFR 77; Glucose 104 mg/dL (80-115); Potassium 3.5 mmol/L (3.5-5.1); Sodium 140 mmol/L (136-145)
[2022-03-25] MEDS: Levothyroxine Sodium 50 MCG TAB PO SCH (05:55)
[2022-03-25 05:57] LABS: Phosphorus 3.3 mg/dL (2.3-4.7)
[2022-03-25] MEDS ORDERED: Magnesium 2 GM/50 ML(in water) 2 GM in Premix Bag 1 BAG IVPB SCH ×2 (06:30→08:00)
[2022-03-25] MEDS ORDERED: Potassium Chloride 20 MEQ TAB PO SCH ×2 (06:30→08:00)
[2022-03-25] MEDS: Mometasone/Formoterol 60 PUFF AER INH SCH ×2 (07:00→19:21)
[2022-03-25] MEDS: Linezolid 600 MG in Premix Bag 1 BAG IVPB SCH ×2 (10:19→20:24)
[2022-03-25] MEDS: Magnesium Oxide 400 MG TAB PO SCH (10:21)
[2022-03-25] MEDS: Apixaban 5 MG TAB PO SCH ×2 (10:22→20:25)
[2022-03-25] MEDS: Aspirin 81 mg Enteric Coated Tablet PO SCH (10:22)
[2022-03-25] MEDS: Furosemide 40 MG TAB PO SCH ×2 (10:22→16:00)
[2022-03-25] MEDS: Metoprolol Tartrate 25 MG TAB PO SCH ×2 (10:22→20:25)
[2022-03-25] MEDS: Senokot S 8.6-50 MG TAB PO SCH ×2 (10:23→20:26)
[2022-03-25] MEDS: Atorvastatin Calcium 20 MG TAB PO SCH (10:23)
[2022-03-25] MEDS: Famotidine 20 MG TAB PO SCH ×2 (10:23→20:25)
[2022-03-25] MEDS: Polyethylene Glycol 3350 17 GM Packet PO SCH (10:23)
[2022-03-25] MEDS: Melatonin 3 MG TAB PO SCH (20:25)
[2022-03-25] MEDS: Lantus 1000 UNITS/10 ML VIAL SC SCH (21:07)
[2022-03-25] MEDS: Estrogens, Conjugated 30 GM TUBE VAG SCH (21:12)
[2022-03-25] MEDS: Aripiprazole 10 MG TAB PO SCH (21:12)
[2022-03-25] MEDS: Benztropine 1 MG TAB PO SCH (21:12)
[2022-03-26 05:02] LABS: #Eosinphils 0.2 10x3/uL (0.0-0.5); #Monocytes 0.5 10x3/uL (0.0-1.1); #Neutrophils 4.2 10x3/uL (1.5-8.4); %Basophils 0.6 % (0.0-2.0); %Eosinophils 3.6 % (0.0-6.0); %Lymphocytes 20.7 % (18.0-47.0); %Monocytes 7.9 % (0.0-10.0); %Neutrophils 66.7 % (40.0-75.0); Hemoglobin 8.6 g/dL (12.0-15.5); Mean Corpuscular Hemoglobin 29.6 pg (27.0-33.0); Mean Corpuscular Volume 92.4 fl (81.6-98.3); Mean Platelet Volume 11.4 fl (7.4-10.4); Platelet Count 141 10x3/uL (150-450); RBC Distribution Width 16.4 % (11.5-14.5); Red Blood Cell (RBC) Count 2.91 10x6/uL (3.90-5.03); White Blood Cell (WBC) Count 6.3 10x3/uL (3.5-10.5)
[2022-03-26 05:33] LABS: Anion Gap 14 mmol/L (10-20); BUN (Urea Nitrogen) 22 mg/dL (9.8-20.1); Calc. Creatinine Clearance 119 mL/min (70-130); Calcium 8.4 mg/dL (7.8-10.44); Carbon Dioxide 29 mmol/L (23-31); Chloride 98 mmol/L (98-107); Estimated GFR 81; Glucose 91 mg/dL (80-115); Magnesium 2.1 mg/dL (1.6-2.6); Potassium 3.4 mmol/L (3.5-5.1); Sodium 138 mmol/L (136-145)
[2022-03-26] MEDS: Levothyroxine Sodium 50 MCG TAB PO SCH (06:33)
[2022-03-26] MEDS: Polyethylene Glycol 3350 17 GM Packet PO SCH (07:20)
[2022-03-26] MEDS: Senokot S 8.6-50 MG TAB PO SCH ×2 (07:20→20:47)
[2022-03-26] MEDS ORDERED: Potassium Chloride 20 MEQ TAB PO SCH (08:00)
[2022-03-26] MEDS: Linezolid 600 MG in Premix Bag 1 BAG IVPB SCH ×2 (08:01→20:45)
[2022-03-26] MEDS: Acetaminophen 325 MG TAB PO PRN ×2 (08:04→15:53)
[2022-03-26] MEDS: Atorvastatin Calcium 20 MG TAB PO SCH (08:07)
[2022-03-26] MEDS: Apixaban 5 MG TAB PO SCH ×2 (08:07→20:46)
[2022-03-26] MEDS: Furosemide 40 MG TAB PO SCH ×2 (08:07→15:53)
[2022-03-26] MEDS: Famotidine 20 MG TAB PO SCH ×2 (08:08→20:46)
[2022-03-26] MEDS: Magnesium Oxide 400 MG TAB PO SCH (08:08)
[2022-03-26] MEDS: Aspirin 81 mg Enteric Coated Tablet PO SCH (08:08)
[2022-03-26] MEDS: Metoprolol Tartrate 25 MG TAB PO SCH ×2 (08:08→20:46)
[2022-03-26] MEDS: Mometasone/Formoterol 60 PUFF AER INH SCH ×2 (08:13→18:45)
[2022-03-26] MEDS ORDERED: Benzonatate 100 MG CAP PO PRN (08:44)
[2022-03-26] MEDS ORDERED: Loperamide HCl 2 MG CAP PO PRN (08:44)
[2022-03-26] MEDS ORDERED: Diphenoxylate HCl/Atropine Tablet PO PRN (08:44)
[2022-03-26] MEDS ORDERED: Calcium Carbonate 500 MG ChewTAB PO PRN (08:44)
[2022-03-26] MEDS ORDERED: Acetaminophen 500 MG TAB PO PRN (08:44)
[2022-03-26] MEDS ORDERED: Ondansetron ODT 4 MG TAB PO PRN (08:44)
[2022-03-26] MEDS ORDERED: Artificial Tear Sol 15 ML BOT EA EYE PRN (08:44)
[2022-03-26] MEDS ORDERED: Moisturizing Cream (Eucerin) 113 GM JAR TOP PRN (08:44)
[2022-03-26] MEDS ORDERED: Cepastat Lozenges 1 LOZ PO PRN (08:44)
[2022-03-26] MEDS ORDERED: diphenhydrAMINE 25 MG CAP PO PRN (08:44)
[2022-03-26] MEDS ORDERED: Sodium Chloride 0.65% Nasal 44 ML BOT EA NARE PRN (08:44)
[2022-03-26 15:35] LABS: Potassium 3.9 mmol/L (3.5-5.1)
[2022-03-26] MEDS: Lactated Ringer's 1,000 ML IV SCH ×2 (15:52→22:05)
[2022-03-26] MEDS: Aripiprazole 10 MG TAB PO SCH (20:46)
[2022-03-26] MEDS: Melatonin 3 MG TAB PO SCH (20:46)
[2022-03-26] MEDS: Estrogens, Conjugated 30 GM TUBE VAG SCH (20:53)
[2022-03-26] MEDS: Benztropine 1 MG TAB PO SCH (20:54)
[2022-03-26] MEDS ORDERED: Lantus 1000 UNITS/10 ML VIAL SC SCH (21:00)
[2022-03-27 03:59] LABS: #Eosinphils 0.2 10x3/uL (0.0-0.5); #Monocytes 0.5 10x3/uL (0.0-1.1); #Neutrophils 4.7 10x3/uL (1.5-8.4); %Basophils 0.6 % (0.0-2.0); %Eosinophils 3.4 % (0.0-6.0); %Lymphocytes 16.7 % (18.0-47.0); %Monocytes 7.6 % (0.0-10.0); %Neutrophils 71.2 % (40.0-75.0); Hemoglobin 9.1 g/dL (12.0-15.5); Mean Corpuscular HGB CONC 30.8 g/dL (32.0-36.0); Mean Corpuscular Hemoglobin 28.9 pg (27.0-33.0); Mean Corpuscular Volume 93.7 fl (81.6-98.3); Mean Platelet Volume 12.3 fl (7.4-10.4); Platelet Count 146 10x3/uL (150-450); RBC Distribution Width 16.6 % (11.5-14.5); Red Blood Cell (RBC) Count 3.15 10x6/uL (3.90-5.03); White Blood Cell (WBC) Count 6.5 10x3/uL (3.5-10.5)
[2022-03-27 04:27] LABS: Anion Gap 15 mmol/L (10-20); BUN (Urea Nitrogen) 19 mg/dL (9.8-20.1); Calc. Creatinine Clearance 104 mL/min (70-130); Calcium 8.6 mg/dL (7.8-10.44); Carbon Dioxide 27 mmol/L (23-31); Chloride 99 mmol/L (98-107); Estimated GFR 71; Glucose 239 mg/dL (80-115); Potassium 3.9 mmol/L (3.5-5.1); Sodium 137 mmol/L (136-145)
[2022-03-27] MEDS: Levothyroxine Sodium 50 MCG TAB PO SCH (05:40)
[2022-03-27] MEDS: Mometasone/Formoterol 60 PUFF AER INH SCH ×2 (08:00→20:10)
[2022-03-27] MEDS: Apixaban 5 MG TAB PO SCH ×2 (08:32→20:21)
[2022-03-27] MEDS: Aspirin 81 mg Enteric Coated Tablet PO SCH (08:32)
[2022-03-27] MEDS: Atorvastatin Calcium 20 MG TAB PO SCH (08:32)
[2022-03-27] MEDS: Furosemide 40 MG TAB PO SCH ×2 (08:32→15:19)
[2022-03-27] MEDS: Polyethylene Glycol 3350 17 GM Packet PO SCH (08:33)
[2022-03-27] MEDS: Metoprolol Tartrate 25 MG TAB PO SCH ×2 (08:33→20:27)
[2022-03-27] MEDS: Senokot S 8.6-50 MG TAB PO SCH ×2 (08:33→22:13)
[2022-03-27] MEDS: Linezolid 600 MG in Premix Bag 1 BAG IVPB SCH ×2 (08:33→20:19)
[2022-03-27] MEDS: Famotidine 20 MG TAB PO SCH ×2 (08:33→20:21)
[2022-03-27] MEDS: Magnesium Oxide 400 MG TAB PO SCH (08:33)
[2022-03-27] MEDS: HumaLOG 300 UNITS/3 ML VIAL SC PRN (08:39)
[2022-03-27 09:48] LABS: Troponin I Less than 0.010 ng/mL (< 0.028)
[2022-03-27] MEDS ORDERED: Meclizine HCl 12.5 MG TAB PO PRN (09:53)
[2022-03-27] MEDS: Acetaminophen 325 MG TAB PO PRN (12:24)
[2022-03-27] MEDS: Melatonin 3 MG TAB PO SCH (20:21)
[2022-03-27] MEDS: Aripiprazole 10 MG TAB PO SCH (20:21)
[2022-03-27] MEDS: Benztropine 1 MG TAB PO SCH (20:21)
[2022-03-27] MEDS: Lantus 1000 UNITS/10 ML VIAL SC SCH (20:22)
[2022-03-27] MEDS: Estrogens, Conjugated 30 GM TUBE VAG SCH (20:27)
[2022-03-27] MEDS ORDERED: Loperamide HCl 2 MG CAP PO SCH (23:30)
[2022-03-28] MEDS: Levothyroxine Sodium 50 MCG TAB PO SCH (05:40)
[2022-03-28 05:47] LABS: Anion Gap 14 mmol/L (10-20); BUN (Urea Nitrogen) 17 mg/dL (9.8-20.1); Calc. Creatinine Clearance 115 mL/min (70-130); Calcium 8.8 mg/dL (7.8-10.44); Carbon Dioxide 29 mmol/L (23-31); Chloride 99 mmol/L (98-107); Estimated GFR 78; Glucose 114 mg/dL (80-115); Magnesium 1.9 mg/dL (1.6-2.6); Potassium 3.9 mmol/L (3.5-5.1); Sodium 138 mmol/L (136-145)
[2022-03-28] MEDS ORDERED: Magnesium 2 GM/50 ML(in water) 2 GM in Premix Bag 1 BAG IVPB SCH (06:15)
[2022-03-28] MEDS: Mometasone/Formoterol 60 PUFF AER INH SCH ×2 (06:42→19:50)
[2022-03-28] MEDS ORDERED: Loperamide HCl 2 MG CAP PO PRN ×2 (07:37)
[2022-03-28] MEDS ORDERED: Diphenoxylate HCl/Atropine Tablet PO PRN ×2 (07:37)
[2022-03-28] MEDS: Lactated Ringer's 500 ML IV SCH ×2 (08:53→18:23)
[2022-03-28] MEDS: Linezolid 600 MG in Premix Bag 1 BAG IVPB SCH ×2 (08:54→20:28)
[2022-03-28] MEDS: Furosemide 40 MG TAB PO SCH ×2 (08:55→13:46)
[2022-03-28] MEDS: Aspirin 81 mg Enteric Coated Tablet PO SCH (08:55)
[2022-03-28] MEDS: Apixaban 5 MG TAB PO SCH ×2 (08:55→20:29)
[2022-03-28] MEDS: Magnesium Oxide 400 MG TAB PO SCH (08:55)
[2022-03-28] MEDS: Famotidine 20 MG TAB PO SCH ×2 (08:56→20:28)
[2022-03-28] MEDS: Atorvastatin Calcium 20 MG TAB PO SCH (08:56)
[2022-03-28] MEDS: Polyethylene Glycol 3350 17 GM Packet PO SCH (08:57)
[2022-03-28] MEDS: Senokot S 8.6-50 MG TAB PO SCH ×2 (08:57→20:29)
[2022-03-28] MEDS: HumaLOG 300 UNITS/3 ML VIAL SC PRN (12:23)
[2022-03-28 14:58] VITALS: BMI 45.8
[2022-03-28] MEDS: Melatonin 3 MG TAB PO SCH (20:28)
[2022-03-28] MEDS: Aripiprazole 10 MG TAB PO SCH (20:29)
[2022-03-28] MEDS: Estrogens, Conjugated 30 GM TUBE VAG SCH (20:30)
[2022-03-28] MEDS: Lantus 1000 UNITS/10 ML VIAL SC SCH (20:31)
[2022-03-28] MEDS: Benztropine 1 MG TAB PO SCH (20:44)
[2022-03-29 04:52] LABS: Anion Gap 14 mmol/L (10-20); BUN (Urea Nitrogen) 20 mg/dL (9.8-20.1); Calc. Creatinine Clearance 103 mL/min (70-130); Calcium 8.8 mg/dL (7.8-10.44); Carbon Dioxide 28 mmol/L (23-31); Chloride 101 mmol/L (98-107); Estimated GFR 65; Glucose 164 mg/dL (80-115); Potassium 4.1 mmol/L (3.5-5.1); Sodium 139 mmol/L (136-145)
[2022-03-29 04:56] LABS: #Eosinphils 0.2 10x3/uL (0.0-0.5); #Monocytes 0.4 10x3/uL (0.0-1.1); #Neutrophils 4.3 10x3/uL (1.5-8.4); %Basophils 0.5 % (0.0-2.0); %Eosinophils 3.3 % (0.0-6.0); %Monocytes 6.9 % (0.0-10.0); Hemoglobin 8.5 g/dL (12.0-15.5); Mean Corpuscular HGB CONC 31.1 g/dL (32.0-36.0); Mean Corpuscular Hemoglobin 29.3 pg (27.0-33.0); Mean Corpuscular Volume 94.1 fl (81.6-98.3); Mean Platelet Volume 11.7 fl (7.4-10.4); Platelet Count 130 10x3/uL (150-450); RBC Distribution Width 16.9 % (11.5-14.5); White Blood Cell (WBC) Count 6.1 10x3/uL (3.5-10.5)
[2022-03-29] MEDS ORDERED: Magnesium 2 GM/50 ML(in water) 2 GM in Premix Bag 1 BAG IVPB SCH (05:00)
[2022-03-29] MEDS: Lactated Ringer's 500 ML IV SCH ×2 (06:12→12:33)
[2022-03-29] MEDS: Levothyroxine Sodium 50 MCG TAB PO SCH (06:12)
[2022-03-29] MEDS ORDERED: Iopamidol 300 61% 100 ML VIAL FS ONE (08:00)
[2022-03-29] MEDS: Aspirin 81 mg Enteric Coated Tablet PO SCH (08:34)
[2022-03-29] MEDS: Famotidine 20 MG TAB PO SCH ×2 (08:34→21:52)
[2022-03-29] MEDS: Furosemide 40 MG TAB PO SCH ×2 (08:34→15:17)
[2022-03-29] MEDS: Atorvastatin Calcium 20 MG TAB PO SCH (08:35)
[2022-03-29] MEDS: Apixaban 5 MG TAB PO SCH ×2 (08:35→21:52)
[2022-03-29] MEDS: Magnesium Oxide 400 MG TAB PO SCH (08:35)
[2022-03-29] MEDS: Linezolid 600 MG in Premix Bag 1 BAG IVPB SCH ×2 (08:36→20:14)
[2022-03-29] MEDS: Polyethylene Glycol 3350 17 GM Packet PO SCH (08:36)
[2022-03-29] MEDS: Senokot S 8.6-50 MG TAB PO SCH ×2 (08:37→22:37)
[2022-03-29] MEDS: Mometasone/Formoterol 60 PUFF AER INH SCH ×2 (10:06→20:10)
[2022-03-29] MEDS: HumaLOG 300 UNITS/3 ML VIAL SC PRN ×3 (12:11→22:36)
[2022-03-29] MEDS: Aripiprazole 10 MG TAB PO SCH (21:52)
[2022-03-29] MEDS: Melatonin 3 MG TAB PO SCH (21:53)
[2022-03-29] MEDS: Benztropine 1 MG TAB PO SCH (22:36)
[2022-03-29] MEDS: Lantus 1000 UNITS/10 ML VIAL SC SCH (22:37)
[2022-03-29] MEDS: Estrogens, Conjugated 30 GM TUBE VAG SCH (22:38)
[2022-03-30] MEDS: Lactated Ringer's 500 ML IV SCH ×2 (00:32→16:26)
[2022-03-30] MEDS: Levothyroxine Sodium 50 MCG TAB PO SCH (05:37)
[2022-03-30] MEDS: Mometasone/Formoterol 60 PUFF AER INH SCH ×2 (06:53→20:20)
[2022-03-30] MEDS: Polyethylene Glycol 3350 17 GM Packet PO SCH (09:58)
[2022-03-30] MEDS: Famotidine 20 MG TAB PO SCH ×2 (09:58→22:22)
[2022-03-30] MEDS: Aspirin 81 mg Enteric Coated Tablet PO SCH (09:58)
[2022-03-30] MEDS: Atorvastatin Calcium 20 MG TAB PO SCH (09:58)
[2022-03-30] MEDS: Magnesium Oxide 400 MG TAB PO SCH (09:58)
[2022-03-30] MEDS: Apixaban 5 MG TAB PO SCH ×2 (09:58→22:21)
[2022-03-30] MEDS: Furosemide 40 MG TAB PO SCH ×2 (09:58→15:04)
[2022-03-30] MEDS: Senokot S 8.6-50 MG TAB PO SCH ×2 (09:59→22:46)
[2022-03-30] MEDS: Linezolid 600 MG in Premix Bag 1 BAG IVPB SCH ×2 (10:02→20:40)
[2022-03-30 12:47] LABS: #Eosinphils 0.1 10x3/uL (0.0-0.5); #Monocytes 0.4 10x3/uL (0.0-1.1); %Basophils 0.5 % (0.0-2.0); %Eosinophils 1.5 % (0.0-6.0); %Lymphocytes 14.4 % (18.0-47.0); %Monocytes 6.5 % (0.0-10.0); %Neutrophils 76.8 % (40.0-75.0); Hemoglobin 8.7 g/dL (12.0-15.5); Mean Corpuscular HGB CONC 31.9 g/dL (32.0-36.0); Mean Corpuscular Hemoglobin 29.5 pg (27.0-33.0); Mean Corpuscular Volume 92.5 fl (81.6-98.3); Mean Platelet Volume 10.4 fl (7.4-10.4); Platelet Count 140 10x3/uL (150-450); RBC Distribution Width 17.1 % (11.5-14.5); Red Blood Cell (RBC) Count 2.95 10x6/uL (3.90-5.03); White Blood Cell (WBC) Count 6.5 10x3/uL (3.5-10.5)
[2022-03-30] MEDS: Acetaminophen 325 MG TAB PO PRN (12:54)
[2022-03-30 13:16] LABS: ALT (SGPT) 12 U/L (8-55); AST (SGOT) 12 U/L (5-34); Albumin 3.2 g/dL (3.4-4.8); Alkaline Phosphatase 56 U/L (40-110); Anion Gap 16 mmol/L (10-20); BUN (Urea Nitrogen) 20 mg/dL (9.8-20.1); Bilirubin, Total 0.5 mg/dL (0.2-1.2); Calc. Creatinine Clearance 110 mL/min (70-130); Calcium 8.8 mg/dL (7.8-10.44); Carbon Dioxide 27 mmol/L (23-31); Chloride 99 mmol/L (98-107); Estimated GFR 68; Glucose 119 mg/dL (80-115); Potassium 4.1 mmol/L (3.5-5.1); Protein, Total 6.2 g/dL (5.8-8.1); Sodium 138 mmol/L (136-145)
[2022-03-30] MEDS: Melatonin 3 MG TAB PO SCH (22:21)
[2022-03-30] MEDS: Benztropine 1 MG TAB PO SCH (22:22)
[2022-03-30] MEDS: Estrogens, Conjugated 30 GM TUBE VAG SCH (22:22)
[2022-03-30] MEDS: Lantus 1000 UNITS/10 ML VIAL SC SCH (22:22)
[2022-03-30] MEDS: Aripiprazole 10 MG TAB PO SCH (22:29)
[2022-03-31] MEDS: Lactated Ringer's 500 ML IV SCH (03:33)
[2022-03-31 05:39] LABS: #Eosinphils 0.1 10x3/uL (0.0-0.5); #Monocytes 0.4 10x3/uL (0.0-1.1); #Neutrophils 3.5 10x3/uL (1.5-8.4); %Basophils 0.6 % (0.0-2.0); %Eosinophils 2.7 % (0.0-6.0); %Monocytes 7.4 % (0.0-10.0); %Neutrophils 68.7 % (40.0-75.0); Hemoglobin 8.4 g/dL (12.0-15.5); Mean Corpuscular HGB CONC 31.1 g/dL (32.0-36.0); Mean Corpuscular Hemoglobin 29.2 pg (27.0-33.0); Mean Corpuscular Volume 93.8 fl (81.6-98.3); Mean Platelet Volume 10.8 fl (7.4-10.4); Platelet Count 121 10x3/uL (150-450); RBC Distribution Width 17.1 % (11.5-14.5); Red Blood Cell (RBC) Count 2.88 10x6/uL (3.90-5.03); White Blood Cell (WBC) Count 5.1 10x3/uL (3.5-10.5)
[2022-03-31 05:53] LABS: ALT (SGPT) 12 U/L (8-55); AST (SGOT) 13 U/L (5-34); Alkaline Phosphatase 53 U/L (40-110); Anion Gap 15 mmol/L (10-20); BUN (Urea Nitrogen) 23 mg/dL (9.8-20.1); Bilirubin, Total 0.4 mg/dL (0.2-1.2); Calc. Creatinine Clearance 110 mL/min (70-130); Calcium 8.5 mg/dL (7.8-10.44); Carbon Dioxide 27 mmol/L (23-31); Chloride 101 mmol/L (98-107); Estimated GFR 68; Globulin 2.8 g/dL (2.4-3.5); Glucose 144 mg/dL (80-115); Potassium 3.7 mmol/L (3.5-5.1); Protein, Total 5.8 g/dL (5.8-8.1); Sodium 139 mmol/L (136-145)
[2022-03-31] MEDS: Levothyroxine Sodium 50 MCG TAB PO SCH (05:57)
[2022-03-31] MEDS: Mometasone/Formoterol 60 PUFF AER INH SCH ×2 (07:25→19:50)
[2022-03-31] MEDS: Atorvastatin Calcium 20 MG TAB PO SCH (10:03)
[2022-03-31] MEDS: Famotidine 20 MG TAB PO SCH ×2 (10:03→22:25)
[2022-03-31] MEDS: Apixaban 5 MG TAB PO SCH ×2 (10:03→22:24)
[2022-03-31] MEDS: Magnesium Oxide 400 MG TAB PO SCH (10:03)
[2022-03-31] MEDS: Furosemide 40 MG TAB PO SCH ×2 (10:04→15:11)
[2022-03-31] MEDS: Senokot S 8.6-50 MG TAB PO SCH ×2 (10:04→22:25)
[2022-03-31] MEDS: Aspirin 81 mg Enteric Coated Tablet PO SCH (10:04)
[2022-03-31] MEDS: Polyethylene Glycol 3350 17 GM Packet PO SCH (10:04)
[2022-03-31] MEDS: Acetaminophen 325 MG TAB PO PRN (10:07)
[2022-03-31] MEDS: Linezolid 600 MG in Premix Bag 1 BAG IVPB SCH ×3 (10:08→15:13)
[2022-03-31] MEDS: HumaLOG 300 UNITS/3 ML VIAL SC PRN ×2 (13:31→17:42)
[2022-03-31] MEDS: Aripiprazole 10 MG TAB PO SCH (22:24)
[2022-03-31] MEDS: Melatonin 3 MG TAB PO SCH (22:24)
[2022-03-31] MEDS: Benztropine 1 MG TAB PO SCH (22:26)
[2022-03-31] MEDS: Lantus 1000 UNITS/10 ML VIAL SC SCH (23:07)
[2022-03-31] MEDS: Estrogens, Conjugated 30 GM TUBE VAG SCH (23:10)
[2022-03-31] MEDS: Lactated Ringer's 1,000 ML IV SCH (23:15)
[2022-04-01] MEDS: Acetaminophen 325 MG TAB PO PRN (00:39)
[2022-04-01] MEDS: Linezolid 600 MG in Premix Bag 1 BAG IVPB SCH ×2 (04:07→15:36)
[2022-04-01] MEDS: Levothyroxine Sodium 50 MCG TAB PO SCH (05:31)
[2022-04-01] MEDS: Mometasone/Formoterol 60 PUFF AER INH SCH ×2 (07:37→19:45)
[2022-04-01] MEDS: Apixaban 5 MG TAB PO SCH ×2 (09:22→21:24)
[2022-04-01] MEDS: Magnesium Oxide 400 MG TAB PO SCH (09:22)
[2022-04-01] MEDS: Atorvastatin Calcium 20 MG TAB PO SCH (09:22)
[2022-04-01] MEDS: Furosemide 40 MG TAB PO SCH ×2 (09:22→15:36)
[2022-04-01] MEDS: Aspirin 81 mg Enteric Coated Tablet PO SCH (09:22)
[2022-04-01] MEDS: Famotidine 20 MG TAB PO SCH ×2 (09:23→21:24)
[2022-04-01] MEDS: Polyethylene Glycol 3350 17 GM Packet PO SCH (09:25)
[2022-04-01] MEDS: Senokot S 8.6-50 MG TAB PO SCH ×2 (19:58→21:25)
[2022-04-01] MEDS: Lactated Ringer's 1,000 ML IV SCH (19:59)
[2022-04-01] MEDS: Aripiprazole 10 MG TAB PO SCH (21:24)
[2022-04-01] MEDS: Lantus 1000 UNITS/10 ML VIAL SC SCH (21:24)
[2022-04-01] MEDS: Benztropine 1 MG TAB PO SCH (21:24)
[2022-04-01] MEDS: Melatonin 3 MG TAB PO SCH (21:24)
[2022-04-01] MEDS: Estrogens, Conjugated 30 GM TUBE VAG SCH (21:28)
[2022-04-02] MEDS: Linezolid 600 MG in Premix Bag 1 BAG IVPB SCH (04:44)
[2022-04-02] MEDS: Levothyroxine Sodium 50 MCG TAB PO SCH (05:50)
[2022-04-02] MEDS: Mometasone/Formoterol 60 PUFF AER INH SCH (07:05)
[2022-04-02] MEDS: Apixaban 5 MG TAB PO SCH (08:26)
[2022-04-02] MEDS: Aspirin 81 mg Enteric Coated Tablet PO SCH (08:26)
[2022-04-02] MEDS: Magnesium Oxide 400 MG TAB PO SCH (08:26)
[2022-04-02] MEDS: Furosemide 40 MG TAB PO SCH (08:26)
[2022-04-02] MEDS: Famotidine 20 MG TAB PO SCH (08:26)
[2022-04-02] MEDS: Polyethylene Glycol 3350 17 GM Packet PO SCH (08:27)
[2022-04-02] MEDS: Atorvastatin Calcium 20 MG TAB PO SCH (08:27)
[2022-04-02] MEDS: Senokot S 8.6-50 MG TAB PO SCH (08:27)
[2022-04-02 12:49] VITALS: BP 125/74; TEMP 95.9
== END 2022-04-02 12:30 | DRG 291 ==
LOC: CSHERS 07:49 → CSHTELE 15:28 → OBSVTOIN 15:28 → CSHTELE 16:05
PROVIDERS: ADMIT Internal Medicine; ATTEND Internal Medicine
DX: I13.0 Hypertensive heart and chronic kidney disease with heart failure and stage 1 through stage 4 chronic kidney disease, or unspecified chronic kidney disease (principal); A41.81 Sepsis due to Enterococcus; J96.01 Acute respiratory failure with hypoxia; I50.23 Acute on chronic systolic (congestive) heart failure; R65.20 Severe sepsis without septic shock; Z16.39 Resistance to other specified antimicrobial drug; I48.11 Longstanding persistent atrial fibrillation; Z68.42 Body mass index [BMI] 45.0-49.9, adult; I42.9 Cardiomyopathy, unspecified; Z20.822 Contact with and (suspected) exposure to COVID-19; J44.9 Chronic obstructive pulmonary disease, unspecified; E11.22 Type 2 diabetes mellitus with diabetic chronic kidney disease; G40.909 Epilepsy, unspecified, not intractable, without status epilepticus; N18.30 Chronic kidney disease, stage 3 unspecified; I87.8 Other specified disorders of veins; K81.9 Cholecystitis, unspecified; F25.0 Schizoaffective disorder, bipolar type; F03.90 Unspecified dementia, unspecified severity, without behavioral disturbance, psychotic disturbance, mood disturbance, and anxiety; E78.5 Hyperlipidemia, unspecified; K21.9 Gastro-esophageal reflux disease without esophagitis; D63.1 Anemia in chronic kidney disease; M10.9 Gout, unspecified; E11.65 Type 2 diabetes mellitus with hyperglycemia; E87.6 Hypokalemia; K59.00 Constipation, unspecified; R07.9 Chest pain, unspecified; I27.20 Pulmonary hypertension, unspecified; I08.3 Combined rheumatic disorders of mitral, aortic and tricuspid valves; R62.7 Adult failure to thrive; F80.89 Other developmental disorders of speech and language; Z79.899 Other long term (current) drug therapy; Z79.4 Long term (current) use of insulin; Z79.82 Long term (current) use of aspirin; Z79.890 Hormone replacement therapy; Z87.891 Personal history of nicotine dependence; Z91.018 Allergy to other foods; Z87.440 Personal history of urinary (tract) infections; Z74.01 Bed confinement status
CPT/HCPCS: 36415; 36416; 71045; 74018; 74177; 76705; 76770; 80048; 80053; 80061; 80076; 81001; 82805; 83036; 83605; 83735; 83880; 84100; 84145; 84443; 84484; 85025; 86140; 87040; 87077; 87081; 87086; 87149; 87186; 87324; 87449; 93005; 93010; 93306; 94760; 96374; 96375; 96376; 97139; J0456; J0690; J0696; J1815; J1940; J2020; J2270; J2405; J3475; J3480; J3490; J7050; J7120; Q9967; S0028; U0003; U0005

== ENCOUNTER 2022-04-07 21:21 | Emergency (ER) | payer MEDICARE, MEDICAID ==
[2022-04-07] MEDS ORDERED: Digoxin 0.5 MG/2 ML AMP ONE (21:33)
[2022-04-07] MEDS ORDERED: Diltiazem 125 MG/25 ML ONE (21:50)
[2022-04-07 21:54] LABS: Actual Bicarbonate (HCO3a) 28.8 mEq/L (22-28); CO2 Tension 38.9 mmHg (35.0-45.0); Carboxyhemoglobin (COHb) 0.8 gm% (0.0-3.0); Hemoglobin (Hb) 8.3 g/dL (12.0-16.0); O2 Tension (PaO2), arterial 105.7 mmHg (> 80.0); Potassium - ABG Lab 3.6 mmol/L (3.70-5.30); Puncture Site RRA; pH, Arterial 7.49 (7.35-7.45)
[2022-04-07 21:57] LABS: ALV-art Gradient 130.875 mmHg (0-20)
[2022-04-07 22:02] LABS: #Basophils 0.1 10x3/uL (0.0-0.2); #Eosinphils 0.1 10x3/uL (0.0-0.5); #Neutrophils 7.5 10x3/uL (1.5-8.4); %Basophils 0.5 % (0.0-2.0); %Eosinophils 0.8 % (0.0-6.0); %Lymphocytes 12.3 % (18.0-47.0); %Monocytes 9.7 % (0.0-10.0); %Neutrophils 76.2 % (40.0-75.0); Hemoglobin 7.3 g/dL (12.0-15.5); Mean Corpuscular HGB CONC 31.5 g/dL (32.0-36.0); Mean Corpuscular Hemoglobin 29.4 pg (27.0-33.0); Mean Corpuscular Volume 93.5 fl (81.6-98.3); Mean Platelet Volume 10.9 fl (7.4-10.4); Platelet Count 147 10x3/uL (150-450); RBC Distribution Width 17.4 % (11.5-14.5); Red Blood Cell (RBC) Count 2.48 10x6/uL (3.90-5.03); White Blood Cell (WBC) Count 9.8 10x3/uL (3.5-10.5)
[2022-04-07 22:22] LABS: ALT (SGPT) 178 U/L (8-55); AST (SGOT) 146 U/L (5-34); Albumin 3.5 g/dL (3.4-4.8); Alkaline Phosphatase 59 U/L (40-110); Anion Gap 16 mmol/L (10-20); BUN (Urea Nitrogen) 36 mg/dL (9.8-20.1); Bilirubin, Total 1.3 mg/dL (0.2-1.2); Calc. Creatinine Clearance 0 mL/min (70-130); Calcium 8.9 mg/dL (7.8-10.44); Carbon Dioxide 26 mmol/L (23-31); Chloride 99 mmol/L (98-107); Estimated GFR 51; Glucose 80 mg/dL (80-115); Potassium 3.6 mmol/L (3.5-5.1); Protein, Total 6.5 g/dL (5.8-8.1); Sodium 137 mmol/L (136-145)
[2022-04-07] MEDS ORDERED: Cefepime 2 GM VIAL ONE (22:34)
[2022-04-07 23:05] LABS: Magnesium 2.1 mg/dL (1.6-2.6)
[2022-04-07] MEDS ORDERED: Furosemide 40 MG/4 ML VIAL ONE (23:18)
[2022-04-07 23:44] LABS: SARS-CoV-2 NAA Rapid Test Not Detected (NotDetected)
== END 2022-04-08 01:11 | disposition short-term general hospital (02) ==
LOC: CSHERS 21:21
DX: R06.03 Acute respiratory distress (principal); I48.91 Unspecified atrial fibrillation; D64.9 Anemia, unspecified; I50.9 Heart failure, unspecified; Z20.822 Contact with and (suspected) exposure to COVID-19; Z79.899 Other long term (current) drug therapy; Z79.82 Long term (current) use of aspirin; Z79.01 Long term (current) use of anticoagulants; Z79.4 Long term (current) use of insulin; E78.5 Hyperlipidemia, unspecified; K21.9 Gastro-esophageal reflux disease without esophagitis; E11.9 Type 2 diabetes mellitus without complications; I11.0 Hypertensive heart disease with heart failure; M10.9 Gout, unspecified; Z87.891 Personal history of nicotine dependence
CPT/HCPCS: 36415; 36430; 36600; 71045; 80053; 82805; 83605; 83735; 83880; 84443; 84484; 85025; 86850; 86900; 86901; 87040; 93005; 94660; J0692; J1160; J1940; J3370; P9016; U0002

== ENCOUNTER 2022-04-15 19:24 | Inpatient (IN) | payer MEDICARE, MEDICAID ==
[2022-04-15] MEDS ORDERED: Nitroglycerin 2% Ointment 1 INCH/1 GM Packet ONE (19:53)
[2022-04-15] MEDS ORDERED: Furosemide 40 MG/4 ML VIAL ONE (19:53)
[2022-04-15] MEDS ORDERED: Aspirin 325 MG TAB ONE (19:54)
[2022-04-15 20:08] LABS: #Eosinphils 0.1 10x3/uL (0.0-0.5); #Monocytes 0.7 10x3/uL (0.0-1.1); #Neutrophils 3.9 10x3/uL (1.5-8.4); %Basophils 0.3 % (0.0-2.0); %Eosinophils 1.9 % (0.0-6.0); %Lymphocytes 16.2 % (18.0-47.0); %Monocytes 11.9 % (0.0-10.0); %Neutrophils 67.6 % (40.0-75.0); Hemoglobin 8.1 g/dL (12.0-15.5); Mean Corpuscular HGB CONC 30.1 g/dL (32.0-36.0); Mean Corpuscular Hemoglobin 28.9 pg (27.0-33.0); Mean Corpuscular Volume 96.1 fl (81.6-98.3); Mean Platelet Volume 11.2 fl (7.4-10.4); Platelet Count 154 10x3/uL (150-450); RBC Distribution Width 22.5 % (11.5-14.5); White Blood Cell (WBC) Count 5.8 10x3/uL (3.5-10.5)
[2022-04-15 20:24] LABS: Digoxin 1.16 ng/mL (0.8-2.0)
[2022-04-15 20:26] LABS: ALT (SGPT) 42 U/L (8-55); AST (SGOT) 27 U/L (5-34); Albumin 3.7 g/dL (3.4-4.8); Alkaline Phosphatase 66 U/L (40-110); Anion Gap 16 mmol/L (10-20); BUN (Urea Nitrogen) 16 mg/dL (9.8-20.1); Bilirubin, Total 0.9 mg/dL (0.2-1.2); CK (CPK) 18 U/L (29-168); Calc. Creatinine Clearance 0 mL/min (70-130); Calcium 9.8 mg/dL (7.8-10.44); Carbon Dioxide 35 mmol/L (23-31); Chloride 98 mmol/L (98-107); Estimated GFR 63; Globulin 2.8 g/dL (2.4-3.5); Glucose 281 mg/dL (80-115); Lipase 42 U/L (8-78); Protein, Total 6.5 g/dL (5.8-8.1); Sodium 145 mmol/L (136-145)
[2022-04-15] MEDS ORDERED: Digoxin 0.5 MG/2 ML AMP ONE (20:37)
[2022-04-15 21:13] LABS: Microcytosis SLIGHT = 6-15 cells (100X) (0-5/hpf)
[2022-04-15 21:15] LABS: Hypochromia SLIGHT = 6-15 cells (100X) (0-5/hpf); Polychromasia SLIGHT = 2-3 cells (100X) (0-2/hpf)
[2022-04-15 21:17] LABS: Anisocytosis SLIGHT = 6-15 cells (100X) (0-5/hpf)
[2022-04-15 22:06] LABS: SARS-CoV-2 NAA Rapid Test Not Detected (NotDetected)
[2022-04-15 22:52] LABS: Troponin I 0.024 ng/mL (< 0.028)
[2022-04-16 02:04] LABS: Troponin I 0.024 ng/mL (< 0.028)
[2022-04-16] MEDS ORDERED: Metolazone 2.5 MG TAB PO SCH (12:30)
[2022-04-16] MEDS ORDERED: Allopurinol 100 MG TAB PO SCH (12:30)
[2022-04-16] MEDS ORDERED: Levothyroxine Sodium 100 MCG TAB PO SCH (13:00)
[2022-04-16] MEDS ORDERED: Alogliptin 25 MG TAB PO SCH (13:00)
[2022-04-16] MEDS ORDERED: Atorvastatin Calcium 20 MG TAB PO SCH (13:00)
[2022-04-16] MEDS ORDERED: Mometasone/Formoterol 60 PUFF AER INH ONE (13:31)
[2022-04-16] MEDS ORDERED: Apixaban 5 MG TAB ONE (13:31)
[2022-04-16] MEDS ORDERED: Furosemide 40 MG TAB ONE (13:54)
[2022-04-16] MEDS ORDERED: Aspirin Chewable 81 MG TAB ONE (13:54)
[2022-04-16] MEDS ORDERED: Ondansetron PF 4 MG/2 ML Vial IVP PRN (14:03)
[2022-04-16] MEDS ORDERED: Ondansetron ODT 4 MG TAB PO PRN (14:03)
[2022-04-16] MEDS ORDERED: Acetaminophen 325 MG TAB PO PRN ×2 (14:03→17:55)
[2022-04-16] MEDS ORDERED: Dextrose 50% Abboject 50 ML SYRINGE SLOW IVP PRN (14:04)
[2022-04-16] MEDS ORDERED: Dextrose 5% in Water 1,000 ML IV PRN (14:04)
[2022-04-16] MEDS ORDERED: Electrolyte Replacement Protocol 1 EACH FS PRN (14:30)
[2022-04-16 15:24] LABS: Magnesium 1.7 mg/dL (1.6-2.6)
[2022-04-16 16:56] VITALS: BMI 35.2
[2022-04-16] MEDS ORDERED: Cyclobenzaprine 10 MG TAB PO PRN (17:46)
[2022-04-16] MEDS ORDERED: Magnesium 2 GM/50 ML(in water) 2 GM in Premix Bag 1 BAG IVPB SCH (20:00)
[2022-04-16] MEDS: Aripiprazole 10 MG TAB PO SCH (20:47)
[2022-04-16] MEDS: Benztropine 1 MG TAB PO SCH (20:47)
[2022-04-16] MEDS: Apixaban 5 MG TAB PO SCH (20:48)
[2022-04-17 05:14] LABS: Magnesium 2.1 mg/dL (1.6-2.6)
[2022-04-17] MEDS: Furosemide 40 MG/4 ML VIAL SLOW IVP SCH ×2 (05:33→15:30)
[2022-04-17] MEDS: Mometasone/Formoterol 60 PUFF AER INH SCH ×2 (06:30→18:25)
[2022-04-17] MEDS: Levothyroxine Sodium 100 MCG TAB PO SCH (07:00)
[2022-04-17] MEDS: Digoxin 0.125 MG TAB PO SCH (09:45)
[2022-04-17] MEDS: Multivit, Therapeutic 1 TAB PO SCH (09:46)
[2022-04-17] MEDS: Cholecalciferol 1,000 UNITS (25 MCG) TAB PO SCH (09:46)
[2022-04-17] MEDS: Apixaban 5 MG TAB PO SCH ×2 (09:46→20:18)
[2022-04-17] MEDS: Allopurinol 100 MG TAB PO SCH (09:46)
[2022-04-17] MEDS: Aspirin 81 mg Enteric Coated Tablet PO SCH (09:46)
[2022-04-17] MEDS: Atorvastatin Calcium 20 MG TAB PO SCH (09:46)
[2022-04-17] MEDS: Nystatin Cream 15 GM TUBE TOP SCH ×2 (12:30→20:18)
[2022-04-17] MEDS: Benztropine 1 MG TAB PO SCH (20:18)
[2022-04-17] MEDS: Aripiprazole 10 MG TAB PO SCH (20:18)
[2022-04-18] MEDS: Levothyroxine Sodium 100 MCG TAB PO SCH (05:28)
[2022-04-18] MEDS: Furosemide 40 MG/4 ML VIAL SLOW IVP SCH ×2 (05:29→15:00)
[2022-04-18] MEDS: Mometasone/Formoterol 60 PUFF AER INH SCH ×2 (07:35→19:43)
[2022-04-18] MEDS: Aspirin 81 mg Enteric Coated Tablet PO SCH (09:03)
[2022-04-18] MEDS: Cholecalciferol 1,000 UNITS (25 MCG) TAB PO SCH (09:03)
[2022-04-18] MEDS: Allopurinol 100 MG TAB PO SCH (09:03)
[2022-04-18] MEDS: Atorvastatin Calcium 20 MG TAB PO SCH (09:03)
[2022-04-18] MEDS: Digoxin 0.125 MG TAB PO SCH (09:03)
[2022-04-18] MEDS: Multivit, Therapeutic 1 TAB PO SCH (09:03)
[2022-04-18] MEDS: Metolazone 2.5 MG TAB PO SCH (09:03)
[2022-04-18] MEDS: Nystatin Cream 15 GM TUBE TOP SCH ×2 (09:04→21:37)
[2022-04-18] MEDS: Apixaban 5 MG TAB PO SCH ×2 (09:04→21:36)
[2022-04-18] MEDS: Aripiprazole 10 MG TAB PO SCH (21:36)
[2022-04-18] MEDS: Benztropine 1 MG TAB PO SCH (21:36)
[2022-04-19] MEDS: Levothyroxine Sodium 100 MCG TAB PO SCH (05:52)
[2022-04-19] MEDS: Furosemide 40 MG/4 ML VIAL SLOW IVP SCH ×2 (05:54→16:42)
[2022-04-19] MEDS: Mometasone/Formoterol 60 PUFF AER INH SCH ×2 (08:27→19:10)
[2022-04-19] MEDS: Digoxin 0.125 MG TAB PO SCH (10:45)
[2022-04-19] MEDS: Cholecalciferol 1,000 UNITS (25 MCG) TAB PO SCH (10:45)
[2022-04-19] MEDS: Atorvastatin Calcium 20 MG TAB PO SCH (10:46)
[2022-04-19] MEDS: Apixaban 5 MG TAB PO SCH ×2 (10:46→22:26)
[2022-04-19] MEDS: Allopurinol 100 MG TAB PO SCH (10:46)
[2022-04-19] MEDS: Aspirin 81 mg Enteric Coated Tablet PO SCH (10:46)
[2022-04-19] MEDS: Multivit, Therapeutic 1 TAB PO SCH (10:46)
[2022-04-19] MEDS: Nystatin Cream 15 GM TUBE TOP SCH ×2 (10:47→22:27)
[2022-04-19] MEDS: Aripiprazole 10 MG TAB PO SCH (22:26)
[2022-04-19] MEDS: Benztropine 1 MG TAB PO SCH (22:26)
[2022-04-19] MEDS: HumaLOG 300 UNITS/3 ML VIAL SC PRN (22:27)
[2022-04-20] MEDS: Levothyroxine Sodium 100 MCG TAB PO SCH (05:57)
[2022-04-20] MEDS: HumaLOG 300 UNITS/3 ML VIAL SC PRN ×3 (06:53→22:05)
[2022-04-20] MEDS: Mometasone/Formoterol 60 PUFF AER INH SCH ×2 (08:05→19:52)
[2022-04-20] MEDS: Aspirin 81 mg Enteric Coated Tablet PO SCH (08:45)
[2022-04-20] MEDS: Furosemide 40 MG TAB PO SCH (08:45)
[2022-04-20] MEDS: Digoxin 0.125 MG TAB PO SCH (08:45)
[2022-04-20] MEDS: Cholecalciferol 1,000 UNITS (25 MCG) TAB PO SCH (08:45)
[2022-04-20] MEDS: Apixaban 5 MG TAB PO SCH ×2 (08:45→21:53)
[2022-04-20] MEDS: Multivit, Therapeutic 1 TAB PO SCH (08:45)
[2022-04-20] MEDS: Allopurinol 100 MG TAB PO SCH (08:45)
[2022-04-20] MEDS: Atorvastatin Calcium 20 MG TAB PO SCH (08:45)
[2022-04-20] MEDS: Metolazone 2.5 MG TAB PO SCH (08:45)
[2022-04-20] MEDS: Nystatin Cream 15 GM TUBE TOP SCH ×2 (08:46→22:05)
[2022-04-20 09:54] LABS: #Basophils 0.1 10x3/uL (0.0-0.2); #Eosinphils 0.4 10x3/uL (0.0-0.5); #Monocytes 0.8 10x3/uL (0.0-1.1); #Neutrophils 4.1 10x3/uL (1.5-8.4); %Basophils 0.9 % (0.0-2.0); %Eosinophils 5.7 % (0.0-6.0); %Lymphocytes 21.4 % (18.0-47.0); %Monocytes 11.5 % (0.0-10.0); %Neutrophils 60.1 % (40.0-75.0); Hemoglobin 9.2 g/dL (12.0-15.5); Mean Corpuscular HGB CONC 31.1 g/dL (32.0-36.0); Mean Corpuscular Hemoglobin 29.9 pg (27.0-33.0); Mean Corpuscular Volume 96.1 fl (81.6-98.3); Mean Platelet Volume 10.8 fl (7.4-10.4); Platelet Count 254 10x3/uL (150-450); RBC Distribution Width 22.5 % (11.5-14.5); Red Blood Cell (RBC) Count 3.08 10x6/uL (3.90-5.03); White Blood Cell (WBC) Count 6.9 10x3/uL (3.5-10.5)
[2022-04-20 10:05] LABS: Anion Gap 15 mmol/L (10-20); BUN (Urea Nitrogen) 17 mg/dL (9.8-20.1); Calc. Creatinine Clearance 104 mL/min (70-130); Carbon Dioxide 37 mmol/L (23-31); Chloride 91 mmol/L (98-107); Estimated GFR 72; Glucose 147 mg/dL (80-115); Potassium 3.4 mmol/L (3.5-5.1); Sodium 140 mmol/L (136-145)
[2022-04-20 10:35] LABS: Platelet Morphology Comment Appears Adequate
[2022-04-20 10:37] LABS: Anisocytosis SLIGHT = 6-15 cells (100X) (0-5/hpf); Elliptocytes SLIGHT = 2-5 cells (100X) (0-1/hpf); Hypochromia SLIGHT = 6-15 cells (100X) (0-5/hpf); Macrocytosis SLIGHT = 6-15 cells (100X) (0-5/hpf); Microcytosis SLIGHT = 6-15 cells (100X) (0-5/hpf); Polychromasia SLIGHT = 2-3 cells (100X) (0-2/hpf)
[2022-04-20] MEDS ORDERED: Potassium Chloride 20 MEQ TAB PO SCH (12:45)
[2022-04-20] MEDS: Aripiprazole 10 MG TAB PO SCH (21:51)
[2022-04-20] MEDS: Benztropine 1 MG TAB PO SCH (21:53)
[2022-04-21 04:36] LABS: Anion Gap 17 mmol/L (10-20); BUN (Urea Nitrogen) 21 mg/dL (9.8-20.1); Calc. Creatinine Clearance 92 mL/min (70-130); Calcium 9.9 mg/dL (7.8-10.44); Carbon Dioxide 29 mmol/L (23-31); Chloride 96 mmol/L (98-107); Estimated GFR 62; Glucose 313 mg/dL (80-115); Sodium 138 mmol/L (136-145)
[2022-04-21 04:41] LABS: #Eosinphils 0.3 10x3/uL (0.0-0.5); #Monocytes 0.8 10x3/uL (0.0-1.1); #Neutrophils 4.9 10x3/uL (1.5-8.4); %Basophils 0.5 % (0.0-2.0); %Eosinophils 3.9 % (0.0-6.0); %Lymphocytes 18.4 % (18.0-47.0); %Monocytes 11.3 % (0.0-10.0); %Neutrophils 65.1 % (40.0-75.0); Hemoglobin 8.7 g/dL (12.0-15.5); Mean Corpuscular HGB CONC 31.3 g/dL (32.0-36.0); Mean Corpuscular Hemoglobin 29.6 pg (27.0-33.0); Mean Corpuscular Volume 94.6 fl (81.6-98.3); Mean Platelet Volume 10.8 fl (7.4-10.4); Platelet Count 260 10x3/uL (150-450); RBC Distribution Width 22.6 % (11.5-14.5); Red Blood Cell (RBC) Count 2.94 10x6/uL (3.90-5.03); White Blood Cell (WBC) Count 7.5 10x3/uL (3.5-10.5)
[2022-04-21] MEDS: HumaLOG 300 UNITS/3 ML VIAL SC PRN ×2 (05:27→11:46)
[2022-04-21] MEDS: Levothyroxine Sodium 100 MCG TAB PO SCH (05:27)
[2022-04-21 05:48] LABS: Anisocytosis SLIGHT = 6-15 cells (100X) (0-5/hpf); Macrocytosis SLIGHT = 6-15 cells (100X) (0-5/hpf); Platelet Morphology Comment Appears Adequate; Polychromasia SLIGHT = 2-3 cells (100X) (0-2/hpf)
[2022-04-21] MEDS: Mometasone/Formoterol 60 PUFF AER INH SCH (07:34)
[2022-04-21] MEDS: Nystatin Cream 15 GM TUBE TOP SCH (09:36)
[2022-04-21] MEDS: Aspirin 81 mg Enteric Coated Tablet PO SCH (09:36)
[2022-04-21] MEDS: Apixaban 5 MG TAB PO SCH (09:36)
[2022-04-21] MEDS: Allopurinol 100 MG TAB PO SCH (09:36)
[2022-04-21] MEDS: Multivit, Therapeutic 1 TAB PO SCH (09:36)
[2022-04-21] MEDS: Digoxin 0.125 MG TAB PO SCH (09:36)
[2022-04-21] MEDS: Furosemide 40 MG TAB PO SCH (09:36)
[2022-04-21] MEDS: Atorvastatin Calcium 20 MG TAB PO SCH (09:36)
[2022-04-21] MEDS: Cholecalciferol 1,000 UNITS (25 MCG) TAB PO SCH (09:36)
[2022-04-21 11:55] VITALS: BP 143/72; TEMP 97.2
== END 2022-04-21 12:28 | DRG 291 ==
LOC: CSHERS 19:24 → CSHTELE 04-16 16:51 → INTOOBSV 04-16 16:51 → OBSVTOIN 04-17 16:26
PROVIDERS: ADMIT Internal Medicine; ATTEND Hospitalist
DX: I13.0 Hypertensive heart and chronic kidney disease with heart failure and stage 1 through stage 4 chronic kidney disease, or unspecified chronic kidney disease (principal); J96.22 Acute and chronic respiratory failure with hypercapnia; I50.43 Acute on chronic combined systolic (congestive) and diastolic (congestive) heart failure; E11.22 Type 2 diabetes mellitus with diabetic chronic kidney disease; N18.9 Chronic kidney disease, unspecified; F31.9 Bipolar disorder, unspecified; I05.0 Rheumatic mitral stenosis; J44.9 Chronic obstructive pulmonary disease, unspecified; I48.91 Unspecified atrial fibrillation; Z20.822 Contact with and (suspected) exposure to COVID-19; I35.0 Nonrheumatic aortic (valve) stenosis; I25.10 Atherosclerotic heart disease of native coronary artery without angina pectoris; E66.01 Morbid (severe) obesity due to excess calories; F41.9 Anxiety disorder, unspecified; D63.1 Anemia in chronic kidney disease; F25.9 Schizoaffective disorder, unspecified; Z98.890 Other specified postprocedural states; Z79.01 Long term (current) use of anticoagulants; Z79.82 Long term (current) use of aspirin; Z79.899 Other long term (current) drug therapy; Z79.4 Long term (current) use of insulin; Z68.35 Body mass index [BMI] 35.0-35.9, adult
CPT/HCPCS: 36415; 36416; 71045; 80048; 80053; 80162; 82550; 83690; 83735; 83880; 84100; 84484; 85025; 93005; 94664; 94760; 96374; 96375; 96376; G0378; J1160; J1815; J1940; J3475

== ENCOUNTER 2022-05-31 22:36 | Emergency (ER) | payer MEDICARE, OTHER ==
[2022-06-01] MEDS ORDERED: Lidocaine 1% (PF) 30 ML VIAL ONE (00:57)
[2022-06-01] MEDS ORDERED: Boostrix 0.5 ML (Tdap) VIAL (>/=7 yrs of age) ONE (01:31)
== END 2022-06-01 02:00 | disposition home or self-care (01) ==
LOC: CSHERS 22:36
DX: S81.811A Laceration without foreign body, right lower leg, initial encounter (principal); I11.0 Hypertensive heart disease with heart failure; I50.9 Heart failure, unspecified; E11.9 Type 2 diabetes mellitus without complications; J44.9 Chronic obstructive pulmonary disease, unspecified; Z87.891 Personal history of nicotine dependence; X58.XXXA Exposure to other specified factors, initial encounter
CPT/HCPCS: 12002; 90471; 90715; J2001

== ENCOUNTER 2022-08-03 14:57 | Emergency (ER) | payer MEDICARE, OTHER, MEDICAID ==
[2022-08-03 16:04] LABS: #Eosinphils 0.3 10x3/uL (0.0-0.5); #Monocytes 0.7 10x3/uL (0.0-1.1); #Neutrophils 5.5 10x3/uL (1.5-8.4); %Basophils 0.5 % (0.0-2.0); %Eosinophils 3.8 % (0.0-6.0); %Monocytes 8.7 % (0.0-10.0); %Neutrophils 69.6 % (40.0-75.0); Hemoglobin 9.8 g/dL (12.0-15.5); Mean Corpuscular HGB CONC 33.7 g/dL (32.0-36.0); Mean Corpuscular Hemoglobin 29.6 pg (27.0-33.0); Mean Corpuscular Volume 87.9 fl (81.6-98.3); Mean Platelet Volume 10.8 fl (7.4-10.4); Platelet Count 197 10x3/uL (150-450); RBC Distribution Width 16.6 % (11.5-14.5); Red Blood Cell (RBC) Count 3.31 10x6/uL (3.90-5.03); White Blood Cell (WBC) Count 7.9 10x3/uL (3.5-10.5)
[2022-08-03 16:14] LABS: ALT (SGPT) 15 U/L (8-55); AST (SGOT) 14 U/L (5-34); Albumin 3.9 g/dL (3.4-4.8); Alkaline Phosphatase 63 U/L (40-110); Anion Gap 15 mmol/L (10-20); BUN (Urea Nitrogen) 28 mg/dL (9.8-20.1); Bilirubin, Total 0.3 mg/dL (0.2-1.2); Calc. Creatinine Clearance 0 mL/min (70-130); Calcium 9.7 mg/dL (7.8-10.44); Carbon Dioxide 30 mmol/L (23-31); Chloride 95 mmol/L (98-107); Estimated GFR 54; Globulin 3.3 g/dL (2.4-3.5); Potassium 3.7 mmol/L (3.5-5.1); Protein, Total 7.2 g/dL (5.8-8.1); Sodium 136 mmol/L (136-145)
[2022-08-03 16:18] LABS: Glucose 404 mg/dL (80-115)
[2022-08-03 17:05] LABS: Bilirubin Neg (Negative); Blood, Urine Negative (Negative); Clarity Clear (Clear); Glucose, Urine (Dipstick) 100 mg/dL (Negative); Ketone, Urine Negative (Negative); Leukocyte Negative (Negative); Nitrite Negative (Negative); Protein, Urine (Dipstick) Negative (Neg-Trace); Urobilinogen Normal mg/dL (Less than 2)
== END 2022-08-03 17:35 | disposition home or self-care (01) ==
LOC: CSHERS 14:57
DX: R41.82 Altered mental status, unspecified (principal); E11.9 Type 2 diabetes mellitus without complications; E78.5 Hyperlipidemia, unspecified; E03.9 Hypothyroidism, unspecified; J44.9 Chronic obstructive pulmonary disease, unspecified; I48.91 Unspecified atrial fibrillation; I11.0 Hypertensive heart disease with heart failure; I50.9 Heart failure, unspecified; Z87.891 Personal history of nicotine dependence; Z79.4 Long term (current) use of insulin
CPT/HCPCS: 36416; 71045; 80053; 81003; 85025; 93005

== ENCOUNTER 2022-09-29 18:58 | Emergency (ER) | payer MEDICARE, MEDICAID ==
[2022-09-29 19:46] LABS: #Eosinphils 0.3 10x3/uL (0.0-0.5); #Monocytes 0.8 10x3/uL (0.0-1.1); #Neutrophils 4.7 10x3/uL (1.5-8.4); %Basophils 0.5 % (0.0-2.0); %Eosinophils 3.7 % (0.0-6.0); %Lymphocytes 22.8 % (18.0-47.0); %Monocytes 10.2 % (0.0-10.0); %Neutrophils 62.3 % (40.0-75.0); Hemoglobin 11.5 g/dL (12.0-15.5); Mean Corpuscular HGB CONC 33.7 g/dL (32.0-36.0); Mean Corpuscular Hemoglobin 30.1 pg (27.0-33.0); Mean Corpuscular Volume 89.3 fl (81.6-98.3); Mean Platelet Volume 11.7 fl (7.4-10.4); Platelet Count 152 10x3/uL (150-450); Red Blood Cell (RBC) Count 3.82 10x6/uL (3.90-5.03); White Blood Cell (WBC) Count 7.6 10x3/uL (3.5-10.5)
[2022-09-29 20:04] LABS: ALT (SGPT) 19 U/L (8-55); AST (SGOT) 16 U/L (5-34); Alkaline Phosphatase 67 U/L (40-110); Anion Gap 17 mmol/L (10-20); BUN (Urea Nitrogen) 50 mg/dL (9.8-20.1); Bilirubin, Total 0.3 mg/dL (0.2-1.2); CK (CPK) 43 U/L (29-168); Calc. Creatinine Clearance 0 mL/min (70-130); Calcium 9.7 mg/dL (7.8-10.44); Carbon Dioxide 28 mmol/L (23-31); Chloride 95 mmol/L (98-107); Estimated GFR 38; Globulin 2.9 g/dL (2.4-3.5); Glucose 335 mg/dL (80-115); Lipase 40 U/L (8-78); Potassium 3.6 mmol/L (3.5-5.1); Protein, Total 6.9 g/dL (5.8-8.1); Sodium 136 mmol/L (136-145)
[2022-09-29 20:20] LABS: CKMB 1.8 ng/mL (0-6.6)
[2022-09-29 20:29] LABS: Bilirubin Neg (Negative); Blood, Urine Negative (Negative); Clarity Slightly Cloudy (Clear); Glucose, Urine (Dipstick) Normal (Negative); Ketone, Urine Negative (Negative); Leukocyte Negative (Negative); Nitrite Negative (Negative); Protein, Urine (Dipstick) Negative (Neg-Trace); Urobilinogen Normal mg/dL (Less than 2); pH, Urine 6.5 (5.0-9.0)
[2022-09-29 20:57] LABS: SARS-CoV-2 NAA Rapid Test Not Detected (NotDetected)
== END 2022-09-29 21:36 ==
LOC: CSHERS 18:58
DX: E86.0 Dehydration (principal); R53.1 Weakness; E78.5 Hyperlipidemia, unspecified; E03.9 Hypothyroidism, unspecified; K21.9 Gastro-esophageal reflux disease without esophagitis; Z87.891 Personal history of nicotine dependence; I48.91 Unspecified atrial fibrillation; J44.9 Chronic obstructive pulmonary disease, unspecified; I11.0 Hypertensive heart disease with heart failure; I50.9 Heart failure, unspecified; E11.9 Type 2 diabetes mellitus without complications; Z79.4 Long term (current) use of insulin; Z20.822 Contact with and (suspected) exposure to COVID-19
CPT/HCPCS: 0240U; 71045; 80053; 81003; 82550; 82553; 83605; 83690; 83880; 84484; 85025; 87040; 87149 ×2; 93005; 36415; 96360

== ENCOUNTER 2022-10-23 13:30 | Outpatient (CLI) | payer MEDICARE, OTHER | END 2022-10-23 13:31 | disposition home or self-care (01) | LOC: CSHCT 13:30 | PROVIDERS: ATTEND Phlebology | DX: J18.9 Pneumonia, unspecified organism (principal); R91.8 Other nonspecific abnormal finding of lung field; R91.1 Solitary pulmonary nodule; Z95.2 Presence of prosthetic heart valve; I70.0 Atherosclerosis of aorta; K76.0 Fatty (change of) liver, not elsewhere classified; E27.8 Other specified disorders of adrenal gland | CPT/HCPCS: 71260; 82565 ==